=== PATIENT | female | born 1940 | race Caucasian/White ===

== ENCOUNTER 2018-02-21 09:28 | Inpatient (IN) | payer OTHER, MEDICARE ==
[2018-02-21] MEDS ORDERED: SODIUM CHLORIDE 1,000 ML IV STA (09:38)
[2018-02-21] MEDS ORDERED: ONDANSETRON 4 MG/2 ML VIAL IVPUSH ONE (09:38)
[2018-02-21] MEDS ORDERED: morphine CARPU-JECT 2 MG/1 ML DISP.SYRIN IVPUSH ONE ×2 (09:46→14:19)
[2018-02-21] MEDS ORDERED: morphine SULFATE 4 MG/ML VIAL ONE ×2 (09:56→14:25)
[2018-02-21] MEDS ORDERED: ONDANSETRON 4 MG/2 ML VIAL ONE ×2 (09:56→19:27)
--- NOTE | 2018-02-21 10:11 | PDOC ---
History of Present Illness - General History Source: Patient Exam Limitations: No Limitations - History of Present Illness Travel History: No Initial Comments: 02/21/18 10:11 77-year-old female with history of breast cancer, adhesions, small bowel obstruction with a permanent colostomy presents ED were continual abdominal pain associated with nausea and vomiting. Patient also states her stool in the colostomy bag appears darker along with radiation of pain now to the right upper quadrant. 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 Weiss. Patient notify Dr. Isela quijano who is concerned with small bowel obstruction and is recommending an ER evaluation/ workup. Patient denies fever, chills, abdominal distention, chest pain or shortness of breath. Patient does state decreased urination but states has not been able to tolerate anything by mouth. Patient denies history of gallstones or renal colic 02/21/18 10:56 Timing/Duration: reports: getting worse, changing over time Quality: reports: moderate, cramping Abdominal Pain Onset Location: reports: generalized abdomen Pain Radiation: reports: RUQ Activities at Onset: reports: none Aggravating Factors: improves with: None Alleviating Factors: improves with: None <Belem Frias - Last Filed: 02/21/18 13:34> <Greta Oliva - Last Filed: 02/21/18 14:40> - General Chief Complaint: Pain, Acute Stated Complaint: ABD PAIN Time Seen by Provider: 02/21/18 09:30 Past History - Travel Traveled outside of the country in the last 30 days: No - Past Medical History Cancer: Yes (BREAST lt) COPD: No GI Disorders: Yes (COLONIC POLYPS,DIVERTICULOSIS) Disorders: Yes (CYSTOCELE,RECTOCELE) HTN: Yes Hypercholesterolemia: Yes Thyroid Disease: No - Surgical History Abdominal Surgery: Yes (colostomy) - Suicide/Smoking/Psychosocial Hx Smoking History: Never smoked Hx Alcohol Use: Yes (SOCIAL) Drug/Substance Use Hx: No Patient Lives Alone: No Lives with/in: spouse/SO <Belem Frias - Last Filed: 02/21/18 13:34> <Greta Oliva - Last Filed: 02/21/18 14:40> - Past Medical History Allergies/Adverse Reactions: Allergies Allergy/AdvReac Type Severity Reaction Status Date / Time sulfamethoxazole Allergy Severe Rash Verified 02/21/18 09:34 [From Bactrim] trimethoprim [From Bactrim] Allergy Severe Rash Verified 02/21/18 09:34 levofloxacin [From Levaquin] Allergy Hives Verified 02/21/18 09:34 Home Medications: Ambulatory Orders Pantoprazole Sodium [Protonix] 40 mg PO DAILY 10/09/14 Simvastatin [Zocor -] 20 mg PO HS 10/09/14 Losartan Potassium 50 mg PO DAILY 02/14/18 Multivitamin/Iron/Folic Acid [Centrum Adults Tablet] 1 each PO DAILY 02/14/18 Abd/GI Specific PMHX - Complaint Specific PMHX Colitis: Yes Diverticulitis: Yes <Belem Frias - Last Filed: 02/21/18 13:34> Review of Systems - Review of Systems Able to Perform ROS?: Yes Constitutional: No: Symptoms Reported HEENTM: No: Symptoms Reported Respiratory: No: Symptoms reported Cardiac (ROS): No: Symptoms Reported ABD/GI: Yes: Nausea, Poor Appetite, Poor Fluid Intake, Vomiting, Abdominal cramping : No: Symptoms Reported Musculoskeletal: No: Symptoms Reported Integumentary: No: Symptoms Reported Neurological: No: Symptoms reported Endocrine: No: Symptoms Reported Hematologic/Lymphatic: No: Symptoms Reported <Belem Frias - Last Filed: 02/21/18 13:34> *Physical Exam - Vital Signs Last Vital Signs Temp Pulse Resp BP Pulse Ox 98.1 F 74 18 164/105 H 99 02/21/18 09:34 02/21/18 09:34 02/21/18 09:34 02/21/18 09:34 02/21/18 09:34 - Physical Exam General Appearance: Yes: Nourished, Appropriately Dressed. No: Apparent Distress HEENT: negative: Pale Conjunctivae Neck: positive: Supple Respiratory/Chest: positive: Lungs Clear, Normal Breath Sounds. negative: Respiratory Distress, Accessory Muscle Use Cardiovascular: positive: Regular Rhythm, Regular Rate. negative: Murmur Gastrointestinal/Abdominal: positive: Normal Bowel Sounds (upper quadrants), Soft, Distended (around stoma (soft)), Tenderness (right upper quadrant, epigastric) Musculoskeletal: negative: CVA Tenderness Extremity: positive: Normal Capillary Refill. negative: Pedal Edema Integumentary: positive: Normal Color, Warm, Moist Neurologic: positive: Motor Strength 5/5 (ambulatory) <Belem Frias - Last Filed: 02/21/18 13:34> - Vital Signs Last Vital Signs Temp Pulse Resp BP Pulse Ox 98.1 F 74 18 164/105 H 99 02/21/18 09:34 02/21/18 09:34 02/21/18 09:34 02/21/18 09:34 02/21/18 09:34 <Greta Oliva - Last Filed: 02/21/18 14:40> Heart Score/ECG Review - ECG Intrepretation Rhythm: Regular Rhythm (ate 70. LVH. No change from previous 02/14/18) <Belem Frias - Last Filed: 02/21/18 13:34> ED Treatment Course - LABORATORY CBC & Chemistry Diagram: 02/21/18 09:28 02/21/18 09:28 - RADIOLOGY Radiology Studies Ordered: Category Date Time Status ABDOMEN & PELVIS CT WITH CONTR [CT] Stat CT Scan 02/21/18 09:35 Ordered <Belem Frias - Last Filed: 02/21/18 13:34> - LABORATORY CBC & Chemistry Diagram: 02/21/18 09:28 02/21/18 09:28 - ADDITIONAL ORDERS Additional order review: Laboratory Results 02/21/18 02/21/18 11:00 09:28 Sodium 144 Potassium 5.2 H Chloride 108 H Carbon Dioxide 26 Anion Gap 10 BUN 25 H Creatinine 1.2 Creat Clearance w eGFR 43.56 Random Glucose 115 H Calcium 9.6 Magnesium 2.3 Total Bilirubin 0.8 AST 15 ALT 26 Alkaline Phosphatase 79 C-Reactive Protein 0.7 H Total Protein 7.4 Albumin 3.8 Total Amylase 75 Lipase 356 Stool Occult Blood Negative 02/21/18 09:28 RBC 4.73 MCV 90.4 MCHC 33.3 RDW 13.6 MPV 7.5 Neutrophils % 89.8 H D Lymphocytes % 5.2 L D Monocytes % 4.4 Eosinophils % 0.1 D Basophils % 0.5 - Medications Given in the ED: ED Medications Discontinued Medications Generic Name Dose Route Start Last Admin Trade Name Freq PRN Reason Stop Dose Admin Sodium Chloride 1,000 mls @ 1,000 mls/hr 02/21/18 09:38 02/21/18 09:58 Normal Saline - IV 02/21/18 10:37 1,000 mls/hr ASDIR STA Administration Morphine Sulfate 4 mg 02/21/18 09:46 02/21/18 10:05 Morphine Injection - IVPUSH 02/21/18 09:47 4 mg ONCE ONE Administration Ondansetron HCl 4 mg 02/21/18 09:38 02/21/18 10:05 Zofran Injection IVPUSH 02/21/18 09:39 4 mg ONCE ONE Administration <Greta Oliva - Last Filed: 02/21/18 14:40> Medical Decision Making - Medical Decision Making 02/21/18 10:05 CC: Abdominal pain nausea vomiting decreased appetite weakness Exam: Generalized abdominal tenderness worsened in the epigastric and right upper quadrant. Positive soft distention surrounding colostomy. Dark stool noted in colostomy Plan: Labs, urine, CT of the abdomen, antiemetics, analgesics IV fluids, CRP, amylase and lipase. Consult Dr. Weiss once diagnostics are resulted. Surgery consult if needed to Dr. Goldstein. Admit to Dr. Hernandez 02/21/18 11:32 Laboratory Tests 02/21/18 11:00 Stool Occult Blood Negative Laboratory Tests 02/21/18 02/21/18 09:28 09:28 WBC 9.5 Hgb 14.2 Hct 42.8 Plt Count 304 D Neutrophils % 89.8 H D Sodium 144 Potassium 5.2 H Chloride 108 H Carbon Dioxide 26 Anion Gap 10 BUN 25 H Creatinine 1.2 Random Glucose 115 H Magnesium 2.3 C-Reactive Protein 0.7 H Total Protein 7.4 Total Amylase 75 Lipase 356 02/21/18 13:32 CT of the abdomen shows small bowel distention which has increased since previous CT done last week in the left abdomen suggestive of shocks and. There is also again visualization of mesenteric edema within the left abdomen/pelvis. Moderate to small amount of free fluid is again seen within the lower pelvis. Development of a [id number] amount of free fluid is seen within the right paramedian ventral infraumbilical hernia which is as seen on prior exam contains several nondilated small bowel loops. A 1.3 cm splenic low attenuation focus is seen probably representing a cyst. This focus is unchanged since previous exam although not definite present on a more remote CT study noted in 2015. Micro-blog sent to Dr. Gardner. Call placed to surgeon Dr. Goldstein <Belem Frias - Last Filed: 02/21/18 13:34> - Medical Decision Making 1:28pm Call placed to Dr. Reyes, correspondence clerk for patient's surgeon Dr. MK Goldstein, awaiting call back. 2:00pm Second call placed to Dr. Reyes, awaiting call back. 2:25pm Third call placed to Dr. Reyes, case was discussed. <Greta Oliva - Last Filed: 02/21/18 14:40> *DC/Admit/Observation/Transfer - Discharge Dispostion Decision to Admit order: Yes <Belem Frias - Last Filed: 02/21/18 13:34> <Greta Oliva - Last Filed: 02/21/18 14:40> Diagnosis at time of Disposition: SBO (small bowel obstruction)
[2018-02-21 10:18] LABS: BASO % 0.5 % (0-2.0); EOS % 0.1 % (0-4.5); HEMATOCRIT 42.8 % (32.4-45.2); HEMOGLOBIN 14.2 GM/dL (10.7-15.3); LYMPH % 5.2 % (8-40); MCH 30.1 pg (25.7-33.7); MCHC 33.3 g/dl (32.0-36.0); MEAN CELL VOLUME 90.4 fl (80-96); MEAN PLT VOLUME 7.5 fl (7.5-11.1); MONO % 4.4 % (3.8-10.2); NEUT % 89.8 % (42.8-82.8); PLATELET COUNT 304 K/MM3 (134-434); RBC 4.73 M/mm3 (3.60-5.2); RDW 13.6 % (11.6-15.6); WHITE BLOOD COUNT 9.5 K/mm3 (4.0-10.0)
[2018-02-21 10:48] LABS: ALBUMIN 3.8 g/dl (3.4-5.0); ALK PHOS 79 U/L (45-117); AMYLASE 75 U/L (25-115); ANION GAP 10 MMOL/L (8-16); BILIRUBIN,TOTAL 0.8 mg/dL (0.2-1); BLOOD UREA NITROGEN 25 mg/dL (7-18); CALCIUM 9.6 mg/dL (8.5-10.1); CHLORIDE 108 mmol/L (98-107); CO2 26 mmol/L (21-32); CREATININE 1.2 mg/dL (0.55-1.3); GLUCOSE,RANDOM 115 mg/dL (74-106); LIPASE 356 U/L (73-393); MAGNESIUM 2.3 mg/dL (1.8-2.4); POTASSIUM 5.2 mmol/L (3.5-5.1); SGOT/AST 15 U/L (15-37); SGPT/ALT 26 U/L (13-61); SODIUM 144 mmol/L (136-145); TOT PROT 7.4 g/dl (6.4-8.2)
--- NOTE | 2018-02-21 12:47 | EKG ---
Test Reason : Blood Pressure : / mmHG Vent. Rate : 070 BPM Atrial Rate : 070 BPM P-R Int : 172 ms QRS Dur : 100 ms QT Int : 408 ms P-R-T Axes : 032 -46 010 degrees QTc Int : 440 ms NORMAL SINUS RHYTHM LEFT ANTERIOR FASCICULAR BLOCK VOLTAGE CRITERIA FOR LEFT VENTRICULAR HYPERTROPHY ABNORMAL ECG Confirmed by MD ANTONY, JENNIE ([id number]) on 02/21/2018 12:46:53 PM Referred By: Confirmed By:JENNIE HARDY MD
--- NOTE | 2018-02-21 13:46 | HP ---
Admitting History and Physical - Primary Care Physician PCP: Larry Hernandez - Admission Chief Complaint: abdominal pain History of Present Illness: is a 77 year old female pmh significant for abdominal surgeries presents with abdominal pain with accompanying n/v since last night. Pt reports sharp/shooting moderate upper abdominal pain, severe in RUQ, radiating to lower back. Pt reports 4 episodes of bilious vomiting prior to admission. She notes colostomy to be without significant outpt/flatus, darker stool seen in ostomy.Upon speaking with GI , she was advised to come to ED. Of note , pt was discharged from hospital on Tuesday for jejunitis/sbo which was managed conservatively. Received Zosyn for 3 days last week. Otherwise, pt denies any chest pain, sob, diarrhea, weakness, fever/chills, hematemesis or recent changes in medications. History Source: Patient Limitations to Obtaining History: No Limitations - Past Medical History Cardiovascular: Yes: HTN, Hyperlipdemia Gastrointestinal: Yes: Diverticulitis (with sigmoid stricture requiring excision on 10/11/14 followed by Kami Procedure), Diverticulosis, Peptic Ulcer Disease, Other (Colon polyps removed 2002, transverse colostomy following sigmoid stricture repair) Renal/: Yes: Cancer (Left breast ca , DCIS managed with lumpectomy and RT in 2005) Heme/Onc: Yes: Cancer (breast ) - Past Surgical History Past Surgical History: Yes: Breast Biopsy, Cataract Removal, Hysterectomy ( vaginal YIN 1978 ), Tonsillectomy Additional Past Surgical History: Transvaginal cystocele and rectocele repair and subseqquen vaginal repair- Dr Boswell - Smoking History Smoking history: Never smoked - Alcohol/Substance Use Hx Alcohol Use: Yes (SOCIAL) History of Substance Use: reports: None - Social History ADL: Independent 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 @[employer] History of Recent Travel: No Home Medications - Allergies Allergies/Adverse Reactions: Allergies Allergy/AdvReac Type Severity Reaction Status Date / Time sulfamethoxazole Allergy Severe Rash Verified 02/21/18 09:34 [From Bactrim] trimethoprim [From Bactrim] Allergy Severe Rash Verified 02/21/18 09:34 levofloxacin [From Levaquin] Allergy Hives Verified 02/21/18 09:34 - Home Medications Home Medications: Ambulatory Orders Pantoprazole Sodium [Protonix] 40 mg PO DAILY 10/09/14 Simvastatin [Zocor -] 20 mg PO HS 10/09/14 Losartan Potassium 50 mg PO DAILY 02/14/18 Multivitamin/Iron/Folic Acid [Centrum Adults Tablet] 1 each PO DAILY 02/14/18 Family Disease History - Family Disease History Family Disease History: Heart Disease: Mother ([place], diverticulitis surgery), CA: Father (lung cancer), Other: Brother (colon polyps) Review of Systems Findings/Remarks: as per hpi Physical Examination Vital Signs: Vital Signs Temperature 98.1 F 02/21/18 09:34 Pulse Rate 74 02/21/18 09:34 Respiratory Rate 18 02/21/18 09:34 Blood Pressure 164/105 H 02/21/18 09:34 O2 Sat by Pulse Oximetry (%) 99 02/21/18 09:34 Constitutional: Yes: Well Nourished, No Distress, Calm Cardiovascular: Yes: WNL, Regular Rate and Rhythm. No: Murmur, Rub Respiratory: Yes: WNL, Regular, CTA Bilaterally. No: Accessory Muscle Use, Rhonchi, SOB, Tachypnea, Wheezes Gastrointestinal: Yes: Normal Bowel Sounds, Soft, Abdomen, Obese, Hernia, Hypoactive Bowel Sounds, Vomiting, Other (colostomy in place). No: Distention, Tenderness, Tenderness, Rebound Renal/: Yes: WNL Musculoskeletal: Yes: WNL Edema: No Neurological: Yes: WNL, Alert, Oriented Psychiatric: Yes: WNL, Alert, Oriented Labs: CBC, BMP 02/21/18 09:28 02/21/18 09:28 Imaging - Results Cat Scan: Report Reviewed ( In comparison to a CT exam of 02/14/2018 interval increased small bowel distention is seen within the left abdomen/pelvis suggestive of obstruction. Mesenteric edema is again seen which may be on the basis of vascular compromise. Increased free intraperitoneal fluid is noted. As on the prior study a left lower quadrant colostomy is seen with a parastomal hernia containing nondilated large and small bowel loops. There is also visualization of a right paramedian infraumbilical hernia containing nondilated small bowel.) EKG: Report Reviewed (NSR) Problem List - Problems (1) SBO (small bowel obstruction) Assessment/Plan: presents w/ abd pain, n/v abd soft, non tender, +bs colostomy without flatus stool occult blood negative CT consistent with SBO suspect 2/2 abd adhesions NPO IVF Strict I&O's Antiemetics/analgesics prn GI/surgery consulted Code(s): K56.609 - UNSP INTESTNL OBST, UNSP TO PARTIAL VERSUS COMPLETE OBST (2) Nausea & vomiting Assessment/Plan: as above Code(s): R11.2 - NAUSEA WITH VOMITING, UNSPECIFIED Qualifiers: Vomiting type: bilious vomiting Qualified Code(s): R11.14 - Bilious vomiting (3) Abdominal pain Assessment/Plan: as above Code(s): R10.9 - UNSPECIFIED ABDOMINAL PAIN Qualifiers: Abdominal location: generalized Qualified Code(s): R10.84 - Generalized abdominal pain (4) CHERYL (acute kidney injury) Assessment/Plan: suspect pre renal IVF monitor Code(s): N17.9 - ACUTE KIDNEY FAILURE, UNSPECIFIED (5) Hyperkalemia Assessment/Plan: suspect 2/2 dehydration monitor Code(s): E87.5 - HYPERKALEMIA (6) S/P colostomy Assessment/Plan: transverse colostomy in place monitor function Code(s): Z93.3 - COLOSTOMY STATUS (7) HLD (hyperlipidemia) Assessment/Plan: stable hold statin for now Code(s): E78.5 - HYPERLIPIDEMIA, UNSPECIFIED Qualifiers: Hyperlipidemia type: pure hypercholesterolemia Qualified Code(s): E78.00 - Pure hypercholesterolemia, unspecified; E78.0 - Pure hypercholesterolemia (8) HTN (hypertension) Assessment/Plan: controlled continue losartan Code(s): I10 - ESSENTIAL (PRIMARY) HYPERTENSION Qualifiers: Hypertension type: essential hypertension Qualified Code(s): I10 - Essential (primary) hypertension
[2018-02-21] MEDS ORDERED: LOSARTAN POTASSIUM 50 MG TABLET (FP) PO SCH (14:15)
[2018-02-21] MEDS ORDERED: PANTOPRAZOLE SODIUM 40 MG/100 ML BAG IVPB ONE (14:26)
[2018-02-21] MEDS ORDERED: HEPARIN NA (PORCINE) 5,000 UNITS/ML 1ML VIAL ONE (14:26)
[2018-02-21] MEDS: PANTOPRAZOLE SODIUM 40 MG VIAL IVPUSH SCH (14:46)
[2018-02-21] MEDS: HEPARIN NA (PORCINE) 5,000 UNITS/ML 1ML VIAL SQ SCH ×2 (14:46→22:03)
[2018-02-21 15:11] LABS: URINE APPEARANCE CLEAR; URINE BILIRUBIN NEGATIVE (<2.0 mg/dL); URINE COLOR LTYELLOW; URINE GLUCOSE (UA) NEGATIVE (NEGATIVE); URINE KETONE 1+ (NEGATIVE); URINE LEUK ESTERASE TRACE (NEGATIVE); URINE NITRITE NEGATIVE (NEGATIVE); URINE PROTEIN NEGATIVE (NEGATIVE); URINE UROBILINOGEN NEGATIVE mg/dL (0.2-1.0)
[2018-02-21 15:39] LABS: EPI CELLS FEW /HPF (FEW); URINE MUCUS RARE
[2018-02-21] MEDS: SODIUM CHLORIDE 1,000 ML IV SCH ×2 (15:44→22:15)
[2018-02-21] MEDS: LOSARTAN POTASSIUM 50 MG TABLET (FP) PO SCH (16:26)
[2018-02-21] MEDS ORDERED: MORPHINE SULFATE 2 MG/ML VIAL ONE (19:23)
[2018-02-21] MEDS: ONDANSETRON 4 MG/2 ML VIAL IVPUSH PRN (19:34)
[2018-02-21] MEDS: MORPHINE SULFATE 2 MG/ML VIAL IVPUSH PRN (19:34)
--- NOTE | 2018-02-21 22:57 | CON.GI ---
Consult Consult Specialty:: Gastroenterology Referred by:: Dr Hernandez Reason for Consultation:: Abd pain and vomiting - History of Present Illness Chief Complaint: Abdominal pain and vomtinig History of Present Illness: 77F was discharged about 3 days ago after SBO resolved. Ths same pain and vomiiting recurred this AM prompting her to call me when I referred her to the ER. CT scan reveals a recurrent SBO. Please see my recent consultation for detailed history - History Source History Provided By: Patient Limitations to Obtaining History: No Limitations - Past Medical History Cardio/Vascular: Yes: HTN, Hyperlipdemia Gastrointestinal: Yes: Diverticulitis (with sigmoid stricture requiring excision on 10/11/14 followed by Kami Procedure), Diverticulosis, Peptic Ulcer Disease, Other (Colon polyps removed 2002, transverse colostomy following sigmoid stricture repair, recurring SBO) Renal/: Yes: Cancer (Left breast ca , DCIS managed with lumpectomy and RT in 2005) - Past Surgical History Past Surgical History: Yes: Breast Biopsy, Cataract Removal, Hysterectomy ( vaginal YIN 1978 ), Tonsillectomy - Alcohol/Substance Use Hx Alcohol Use: Yes (SOCIAL) History of Substance Use: reports: None - Smoking History Smoking history: Never smoked - Social History Usual Living Arrangement: With Spouse ADL: Independent 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 @[employer] History of Recent Travel: No Home Medications - Allergies Allergies/Adverse Reactions: Allergies Allergy/AdvReac Type Severity Reaction Status Date / Time sulfamethoxazole Allergy Severe Rash Verified 02/21/18 09:34 [From Bactrim] trimethoprim [From Bactrim] Allergy Severe Rash Verified 02/21/18 09:34 levofloxacin [From Levaquin] Allergy Hives Verified 02/21/18 09:34 - Home Medications Home Medications: Ambulatory Orders Pantoprazole Sodium [Protonix] 40 mg PO DAILY 10/09/14 Simvastatin [Zocor -] 20 mg PO HS 10/09/14 Losartan Potassium 50 mg PO DAILY 02/14/18 Multivitamin/Iron/Folic Acid [Centrum Adults Tablet] 1 each PO DAILY 02/14/18 Family Disease History - Family Disease History Family Disease History: Heart Disease: Mother ([place], diverticulitis surgery), CA: Father (lung cancer), Other: Brother (colon polyps) Review of Systems - Review of Systems Constitutional: reports: Loss of Appetite Cardiovascular: reports: No Symptoms Respiratory: reports: No Symptoms Gastrointestinal: reports: Abdominal Pain, Vomiting Physical Exam-GI Vital Signs: Vital Signs Temperature 99.4 F 02/21/18 22:19 Pulse Rate 86 02/21/18 22:19 Respiratory Rate 18 02/21/18 22:19 Blood Pressure 142/76 02/21/18 22:19 O2 Sat by Pulse Oximetry (%) 98 02/21/18 21:14 CBC,CMP WBC 9.5 K/mm3 (4.0-10.0) 02/21/18 09:28 RBC 4.73 M/mm3 (3.60-5.2) 02/21/18 09:28 Hgb 14.2 GM/dL (10.7-15.3) 02/21/18 09: Hct 42.8 % (32.4-45.2) 02/21/18 09:28 MCV 90.4 fl (80-96) 02/21/18 09: MCH 30.1 pg (25.7-33.7) 02/21/18 09: MCHC 33.3 g/dl (32.0-36.0) 02/21/18 09: RDW 13.6 % (11.6-15.6) 02/21/18 09: Plt Count 304 K/MM3 (134-434) D 02/21/18 09:28 MPV 7.5 fl (7.5-11.1) 02/21/18 09:28 Absolute Neuts (auto) 8.6 K/mm3 (1.5-8.0) H 02/21/18 09: Neutrophils % 89.8 % (42.8-82.8) H D 02/21/18 09:28 Lymphocytes % 5.2 % (8-40) L D 02/21/18 09:28 Monocytes % 4.4 % (3.8-10.2) 02/21/18 09:28 Eosinophils % 0.1 % (0-4.5) D 02/21/18 09:28 Basophils % 0.5 % (0-2.0) 02/21/18 09:28 Nucleated RBC % 0 % (0-0) 02/21/18 09:28 Sodium 144 mmol/L (136-145) 02/21/18 09:28 Potassium 5.2 mmol/L (3.5-5.1) H 02/21/18 09:28 Chloride 108 mmol/L (98-107) H 02/21/18 09:28 Carbon Dioxide 26 mmol/L (21-32) 02/21/18:28 Anion Gap 10 MMOL/L (8-16) 02/21/18 09:28 BUN 25 mg/dL (7-18) H 02/21/18 09:28 Creatinine 1.2 mg/dL (0.55-1.3) 02/21/18 09:28 Creat Clearance w eGFR 43.56 (>60) 02/21/18: Random Glucose 115 mg/dL (74-106) H 02/21/18: Calcium 9.6 mg/dL (8.5-10.1) 02/21/18: Magnesium 2.3 mg/dL (1.8-2.4) 02/21/18 09: Total Bilirubin 0.8 mg/dL (0.2-1) 02/21/18: AST 15 U/L (15-37) 02/21/18 09:28 ALT 26 U/L (13-61) 02/21/18 09: Alkaline Phosphatase 79 U/L (45-117) 02/21/18 09:28 C-Reactive Protein 0.7 MG/DL (0.00-0.3) H 02/21/18 09:28 Total Protein 7.4 g/dl (6.4-8.2) 02/21/18: Albumin 3.8 g/dl (3.4-5.0) 02/21/18 09:28 Total Amylase 75 U/L (25-115) 02/21/18 09:28 Lipase 356 U/L (73-393) 02/21/18 09:28 Current Medications Generic Name Dose Route Start Last Admin Trade Name Freq PRN Reason Stop Dose Admin Heparin Sodium (Porcine) 5,000 unit 02/21/18 14:00 02/21/18 22:03 Heparin - SQ 5,000 unit TID JOSELUIS Administration Sodium Chloride 1,000 mls @ 100 mls/hr 02/21/18 14:45 02/21/18 22:15 Normal Saline - IV 100 mls/hr ASDIR JOSELUIS Administration Losartan Potassium 50 mg 02/21/18 14:15 02/21/18 16:26 Cozaar - PO 50 mg DAILY JOSELUIS Administration Morphine Sulfate 2 mg 02/21/18 16:48 02/21/18 19:34 Morphine Sulfate IVPUSH 2 mg Q4H PRN Administration PAIN LEVEL 6-10 Ondansetron HCl 4 mg 02/21/18 16:49 02/21/18 19:34 Zofran Injection IVPUSH 4 mg Q6H PRN Administration NAUSEA AND/OR VOMITING Pantoprazole Sodium 40 mg 02/21/18 14:15 02/21/18 14:46 Protonix Iv IVPUSH 40 mg DAILY JOSELUIS Administration Constitutional: Yes: Anxious Eyes: Yes: Conjunctiva Clear HENT: Yes: Normocephalic Neck: Yes: Trachea Midline Cardiovascular: Yes: Regular Rate and Rhythm Respiratory: Yes: CTA Bilaterally Gastrointestinal Inspection: Yes: Scars (healed laparoscopic and Pfannensteil incisions with suprapubic nontender hernia), Other (functioning LUQ colostomy with hernia,) ...Auscultate: Yes: Hyperactive Bowel Sounds ...Palpate: Yes: Tenderness (mild LLQ tenderness, no peritoneal signs) Labs: CBC, BMP 02/21/18 09:28 02/21/18 09:28 Imaging - Results Cat Scan: Image Reviewed (recurrent SBO,) Problem List - Problems (1) SBO (small bowel obstruction) Assessment/Plan: Recurrent SBO most likely due to adhesions as there do not appears to be intestinal loops dilated within her hernias. Agree with need to be NPO and for IV fluids until evaluated by surgery, If vomiting recurs will need NG suctioning ( failed insertion in ER). Code(s): K56.609 - UNSP INTESTNL OBST, UNSP TO PARTIAL VERSUS COMPLETE OBST (2) Abdominal pain Code(s): R10.9 - UNSPECIFIED ABDOMINAL PAIN Qualifiers: Abdominal location: generalized Qualified Code(s): R10.84 - Generalized abdominal pain (3) Colon polyps Code(s): K63.5 - POLYP OF COLON (4) Complication of ostomy Code(s): [id number] - (5) History of surgical removal of intestinal structure Code(s): Z98.890 - OTHER SPECIFIED POSTPROCEDURAL STATES; Z90.49 - ACQUIRED ABSENCE OF OTHER SPECIFIED PARTS OF DIGESTIVE TRACT (6) Nausea & vomiting Code(s): R11.2 - NAUSEA WITH VOMITING, UNSPECIFIED Qualifiers: Vomiting type: bilious vomiting Qualified Code(s): R11.14 - Bilious vomiting (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
--- NOTE | 2018-02-21 23:13 | PN ---
Progress Note (short form) - Note Progress Note: GI NOte: The NG tube was inserted as Nicole did vomit again. Bilious fluid returned. Suctioning ordered Problem List - Problems (1) SBO (small bowel obstruction) Code(s): K56.609 - UNSP INTESTNL OBST, UNSP TO PARTIAL VERSUS COMPLETE OBST (2) Abdominal pain Code(s): R10.9 - UNSPECIFIED ABDOMINAL PAIN Qualifiers: Abdominal location: generalized Qualified Code(s): R10.84 - Generalized abdominal pain (3) Colon polyps Code(s): K63.5 - POLYP OF COLON (4) Complication of ostomy Code(s): [id number] - (5) History of surgical removal of intestinal structure Code(s): Z98.890 - OTHER SPECIFIED POSTPROCEDURAL STATES; Z90.49 - ACQUIRED ABSENCE OF OTHER SPECIFIED PARTS OF DIGESTIVE TRACT (6) Nausea & vomiting Code(s): R11.2 - NAUSEA WITH VOMITING, UNSPECIFIED Qualifiers: Vomiting type: bilious vomiting Qualified Code(s): R11.14 - Bilious vomiting (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
[2018-02-22] MEDS ORDERED: ACETAMINOPHEN 1000 MG/100 ML VIAL (NON FORMULARY) IVPB ONE (03:06)
[2018-02-22] MEDS: HEPARIN NA (PORCINE) 5,000 UNITS/ML 1ML VIAL SQ SCH ×3 (05:46→22:01)
[2018-02-22 06:38] LABS: BASO % 0.4 % (0-2.0); EOS % 0.8 % (0-4.5); HEMATOCRIT 38.9 % (32.4-45.2); HEMOGLOBIN 12.7 GM/dL (10.7-15.3); LYMPH % 10.7 % (8-40); MCH 29.8 pg (25.7-33.7); MCHC 32.7 g/dl (32.0-36.0); MEAN CELL VOLUME 91.3 fl (80-96); MEAN PLT VOLUME 7.2 fl (7.5-11.1); MONO % 6.7 % (3.8-10.2); NEUT % 81.4 % (42.8-82.8); PLATELET COUNT 229 K/MM3 (134-434); RBC 4.26 M/mm3 (3.60-5.2); RDW 13.4 % (11.6-15.6); WHITE BLOOD COUNT 5.8 K/mm3 (4.0-10.0)
[2018-02-22 07:30] LABS: ALBUMIN 3.1 g/dl (3.4-5.0); ALK PHOS 61 U/L (45-117); ANION GAP 7 MMOL/L (8-16); BILIRUBIN,TOTAL 0.7 mg/dL (0.2-1); BLOOD UREA NITROGEN 17 mg/dL (7-18); CALCIUM 8.1 mg/dL (8.5-10.1); CHLORIDE 110 mmol/L (98-107); CO2 27 mmol/L (21-32); CREATININE 0.9 mg/dL (0.55-1.3); GLUCOSE,RANDOM 102 mg/dL (74-106); MAGNESIUM 2.1 mg/dL (1.8-2.4); POTASSIUM 4.2 mmol/L (3.5-5.1); SGOT/AST 10 U/L (15-37); SGPT/ALT 19 U/L (13-61); SODIUM 144 mmol/L (136-145)
[2018-02-22] MEDS: SODIUM CHLORIDE 1,000 ML IV SCH (08:38)
--- NOTE | 2018-02-22 10:24 | PN ---
Progress Note (short form) - Note Progress Note: surgery pt seen and examined. 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 pt had chosen to live with her colostomy and developed a large para-stomal hernia. Pt recently admitted and discharged for adhesive sbo and returns with similar symptoms after eating spinach. Ct consistent with adhesive sbo not involving the parastomal hernia. Pt is currently pain free with ngt output now dropping off after initial 1000 output. abd is soft, nt. parastomal hernia is reducible. scant stool without gas in colostomy bag. plan- psbo, parastomal hernia, obesity- would again attempt conservative management and only operate if fails. Pt is non toxic without clinical evidence of bowel compromise. cont ngt. will give trial of sesame seed oil or olive oil therapy pending kitchen availability. (Study in [place] and [place] with about 60 patients each showed decrease need for surgery ([place]) and decreased time to resolution (both) with 5 oz of oil via ngt. will repeat kub to follow migration of contrast. will follow.
[2018-02-22] MEDS: LOSARTAN POTASSIUM 50 MG TABLET (FP) PO SCH (10:46)
[2018-02-22] MEDS: PANTOPRAZOLE SODIUM 40 MG VIAL IVPUSH SCH (10:46)
--- NOTE | 2018-02-22 11:59 | PN ---
Progress Note, Physician Chief Complaint: Pt sitting in chair in no acute distress. Feeling better, abd pain improved. Denies any chest pain, sob, n/v/d - Current Medication List Current Medications: Active Medications Heparin Sodium (Porcine) (Heparin -) 5,000 unit SQ TID [facility] Last Admin: 02/22/18 05:46 Dose: 5,000 unit Sodium Chloride (Normal Saline -) 1,000 mls @ 100 mls/hr IV ASDIR [facility] Last Admin: 02/22/18 08:38 Dose: 100 mls/hr Losartan Potassium (Cozaar -) 50 mg PO DAILY [facility] Last Admin: 02/22/18 10:46 Dose: 50 mg Morphine Sulfate (Morphine Sulfate) 2 mg IVPUSH Q4H PRN PRN Reason: PAIN LEVEL 6-10 Last Admin: 02/21/18 19:34 Dose: 2 mg Ondansetron HCl (Zofran Injection) 4 mg IVPUSH Q6H PRN PRN Reason: NAUSEA AND/OR VOMITING Last Admin: 02/21/18 19:34 Dose: 4 mg Pantoprazole Sodium (Protonix Iv) 40 mg IVPUSH DAILY [facility] Last Admin: 02/22/18 10:46 Dose: 40 mg - Objective Vital Signs: Vital Signs Temperature 98.8 F 02/22/18 06:37 Pulse Rate 90 02/22/18 06:37 Respiratory Rate 20 02/22/18 06:37 Blood Pressure 142/82 02/22/18 06:37 O2 Sat by Pulse Oximetry (%) 98 02/21/18 21:14 Constitutional: Yes: Well Nourished, No Distress, Calm Cardiovascular: Yes: WNL, Regular Rate and Rhythm. No: Murmur, Rub Respiratory: Yes: WNL, Regular, CTA Bilaterally. No: Accessory Muscle Use, SOB , Tachypnea, Wheezes Gastrointestinal: Yes: Normal Bowel Sounds, Soft, Abdomen, Obese, Hypoactive Bowel Sounds, Other (colostomy in place). No: Distention, Tenderness Genitourinary: Yes: WNL Musculoskeletal: Yes: WNL Extremities: Yes: WNL Edema: No Neurological: Yes: WNL, Alert, Oriented Psychiatric: Yes: WNL, Alert, Oriented Labs: CBC, BMP 02/22/18 05:30 02/22/18 05:30 Assessment/Plan (1) SBO (small bowel obstruction) Assessment/Plan: kub this am- sbo similar to CT suspect 2/2 abd adhesions NGT to LCWS NPO IVF Strict I&O's Antiemetics/analgesics prn conservative management per surgery- trial of sesame/olive oil GI/surgery consult appreciated Code(s): K56.609 - UNSP INTESTNL OBST, UNSP TO PARTIAL VERSUS COMPLETE OBST (2) Nausea & vomiting Assessment/Plan: as above Code(s): R11.2 - NAUSEA WITH VOMITING, UNSPECIFIED Qualifiers: Vomiting type: bilious vomiting Qualified Code(s): R11.14 - Bilious vomiting (3) Abdominal pain Assessment/Plan: as above Code(s): R10.9 - UNSPECIFIED ABDOMINAL PAIN Qualifiers: Abdominal location: generalized Qualified Code(s): R10.84 - Generalized abdominal pain (4) CHERYL (acute kidney injury) Assessment/Plan: improved s/p ivf Code(s): N17.9 - ACUTE KIDNEY FAILURE, UNSPECIFIED (5) Hyperkalemia Assessment/Plan: resolved Code(s): E87.5 - HYPERKALEMIA (6) S/P colostomy Assessment/Plan: transverse colostomy in place Code(s): Z93.3 - COLOSTOMY STATUS (7) HLD (hyperlipidemia) Assessment/Plan: stable hold statin for now Code(s): E78.5 - HYPERLIPIDEMIA, UNSPECIFIED Qualifiers: Hyperlipidemia type: pure hypercholesterolemia Qualified Code(s): E78.00 - Pure hypercholesterolemia, unspecified; E78.0 - Pure hypercholesterolemia (8) HTN (hypertension) Assessment/Plan: controlled continue losartan Code(s): I10 - ESSENTIAL (PRIMARY) HYPERTENSION Qualifiers: Hypertension type: essential hypertension Qualified Code(s): I10 - Essential (primary) hypertension Dispo: home when surgery cleared
--- NOTE | 2018-02-22 12:13 | PN ---
GI Progress Note Subjective: G NOte: NG has drained 1300cc. Abdominal pain and vomiting resolved. Colostomy is functioning. Surgical consultation appreciated. - Objective Vital Signs: Vital Signs Temperature 98.8 F 02/22/18 06:37 Pulse Rate 90 02/22/18 06:37 Respiratory Rate 20 02/22/18 06:37 Blood Pressure 142/82 02/22/18 06:37 O2 Sat by Pulse Oximetry (%) 98 02/21/18 21:14 Laboratory Tests 02/22/18 02/22/18 05:30 05:30 WBC 5.8 Potassium 4.2 BUN 17 Creatinine 0.9 Gastrointestinal Inspection: Yes: Distention ...Auscultate: Yes: Normoactive Bowel Sounds ...Palpate: Yes: Soft, Other (nontender) Labs: CBC, BMP 02/22/18 05:30 02/22/18 05:30 Problem List - Problems (1) SBO (small bowel obstruction) Assessment/Plan: Recurrent SBO likely due to adhesions. Will defer management to the surgical team. Please recall us as needed. Code(s): K56.609 - UNSP INTESTNL OBST, UNSP TO PARTIAL VERSUS COMPLETE OBST (2) Abdominal pain Code(s): R10.9 - UNSPECIFIED ABDOMINAL PAIN Qualifiers: Abdominal location: generalized Qualified Code(s): R10.84 - Generalized abdominal pain (3) Colon polyps Code(s): K63.5 - POLYP OF COLON (4) Complication of ostomy Code(s): [id number] - (5) History of surgical removal of intestinal structure Code(s): Z98.890 - OTHER SPECIFIED POSTPROCEDURAL STATES; Z90.49 - ACQUIRED ABSENCE OF OTHER SPECIFIED PARTS OF DIGESTIVE TRACT (6) Nausea & vomiting Code(s): R11.2 - NAUSEA WITH VOMITING, UNSPECIFIED Qualifiers: Vomiting type: bilious vomiting Qualified Code(s): R11.14 - Bilious vomiting (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
[2018-02-22] MEDS: ONDANSETRON 4 MG/2 ML VIAL IVPUSH PRN (22:18)
[2018-02-23] MEDS: HEPARIN NA (PORCINE) 5,000 UNITS/ML 1ML VIAL SQ SCH ×3 (06:54→21:09)
[2018-02-23 07:15] LABS: BASO % 0.6 % (0-2.0); EOS % 0.2 % (0-4.5); HEMATOCRIT 43.6 % (32.4-45.2); HEMOGLOBIN 14.4 GM/dL (10.7-15.3); LYMPH % 9.4 % (8-40); MCH 29.7 pg (25.7-33.7); MCHC 32.9 g/dl (32.0-36.0); MEAN CELL VOLUME 90.2 fl (80-96); MEAN PLT VOLUME 7.7 fl (7.5-11.1); MONO % 6.2 % (3.8-10.2); NEUT % 83.6 % (42.8-82.8); PLATELET COUNT 320 K/MM3 (134-434); RBC 4.83 M/mm3 (3.60-5.2); RDW 13.4 % (11.6-15.6); WHITE BLOOD COUNT 10.1 K/mm3 (4.0-10.0)
[2018-02-23 07:32] LABS: ANION GAP 9 MMOL/L (8-16); BLOOD UREA NITROGEN 19 mg/dL (7-18); CALCIUM 8.6 mg/dL (8.5-10.1); CHLORIDE 110 mmol/L (98-107); CO2 26 mmol/L (21-32); CREATININE 0.9 mg/dL (0.55-1.3); GLUCOSE,RANDOM 95 mg/dL (74-106); POTASSIUM 3.9 mmol/L (3.5-5.1); SODIUM 145 mmol/L (136-145)
[2018-02-23] MEDS: SODIUM CHLORIDE 1,000 ML IV SCH (08:53)
[2018-02-23] MEDS: LOSARTAN POTASSIUM 50 MG TABLET (FP) PO SCH (10:13)
[2018-02-23] MEDS: PANTOPRAZOLE SODIUM 40 MG VIAL IVPUSH SCH (10:13)
--- NOTE | 2018-02-23 11:47 | PN ---
Progress Note, Physician Chief Complaint: Pt sitting in chair in no acute distress. Feeling better. Denies any chest pain , sob, n/v/d - Current Medication List Current Medications: Active Medications Heparin Sodium (Porcine) (Heparin -) 5,000 unit SQ TID [facility] Last Admin: 02/23/18 06:54 Dose: 5,000 unit Sodium Chloride (Normal Saline -) 1,000 mls @ 100 mls/hr IV ASDIR [facility] Last Admin: 02/23/18 08:53 Dose: 100 mls/hr Losartan Potassium (Cozaar -) 50 mg PO DAILY [facility] Last Admin: 02/23/18 10:13 Dose: 50 mg Morphine Sulfate (Morphine Sulfate) 2 mg IVPUSH Q4H PRN PRN Reason: PAIN LEVEL 6-10 Last Admin: 02/21/18 19:34 Dose: 2 mg Ondansetron HCl (Zofran Injection) 4 mg IVPUSH Q6H PRN PRN Reason: NAUSEA AND/OR VOMITING Last Admin: 02/22/18 22:18 Dose: 4 mg Pantoprazole Sodium (Protonix Iv) 40 mg IVPUSH DAILY [facility] Last Admin: 02/23/18 10:13 Dose: 40 mg - Objective Vital Signs: Vital Signs Temperature 99.4 F 02/23/18 10:06 Pulse Rate 88 02/23/18 10:06 Respiratory Rate 20 02/23/18 10:06 Blood Pressure 139/80 02/23/18 10:06 O2 Sat by Pulse Oximetry (%) 98 02/21/18 21:14 Constitutional: Yes: Well Nourished, No Distress, Calm Cardiovascular: Yes: WNL, Regular Rate and Rhythm Respiratory: Yes: WNL, Regular, CTA Bilaterally. No: Accessory Muscle Use, Cough, SOB, Tachypnea Gastrointestinal: Yes: Normal Bowel Sounds, Soft, Abdomen, Obese, Other (ngt to ws). No: Distention, Hematemesis, Tenderness Genitourinary: Yes: WNL Musculoskeletal: Yes: WNL Extremities: Yes: WNL Neurological: Yes: WNL, Alert, Oriented Psychiatric: Yes: WNL, Alert, Oriented Labs: CBC, BMP 02/23/18 06:00 02/23/18 06:00 Assessment/Plan (1) SBO (small bowel obstruction) Assessment/Plan: suspect 2/2 abd adhesions NGT to LCWS- still w/ significant outpt improved nausea, abd pain NPO IVF increased Strict I&O's Antiemetics/analgesics prn conservative management per surgery- trial of sesame/olive oil GI/surgery consult appreciated Code(s): K56.609 - UNSP INTESTNL OBST, UNSP TO PARTIAL VERSUS COMPLETE OBST (2) Nausea & vomiting Assessment/Plan: as above Code(s): R11.2 - NAUSEA WITH VOMITING, UNSPECIFIED Qualifiers: Vomiting type: bilious vomiting Qualified Code(s): R11.14 - Bilious vomiting (3) Abdominal pain Assessment/Plan: as above Code(s): R10.9 - UNSPECIFIED ABDOMINAL PAIN Qualifiers: Abdominal location: generalized Qualified Code(s): R10.84 - Generalized abdominal pain (4) CHERYL (acute kidney injury) improved s/p ivf Code(s): N17.9 - ACUTE KIDNEY FAILURE, UNSPECIFIED (5) Leukocytosis Assessment/Plan: borderline, monitor closely Code(s): D72.829 - ELEVATED WHITE BLOOD CELL COUNT, UNSPECIFIED (6) S/P colostomy Assessment/Plan: transverse colostomy in place Code(s): Z93.3 - COLOSTOMY STATUS (7) HLD (hyperlipidemia) Assessment/Plan: stable hold statin for now Code(s): E78.5 - HYPERLIPIDEMIA, UNSPECIFIED Qualifiers: Hyperlipidemia type: pure hypercholesterolemia Qualified Code(s): E78.00 - Pure hypercholesterolemia, unspecified; E78.0 - Pure hypercholesterolemia (8) HTN (hypertension) Assessment/Plan: controlled continue losartan Code(s): I10 - ESSENTIAL (PRIMARY) HYPERTENSION Qualifiers: Hypertension type: essential hypertension Qualified Code(s): I10 - Essential (primary) hypertension Dispo: home when surgery cleared
[2018-02-23] MEDS ORDERED: DEXTROSE 5%-0.45% SALINE 1,000 ML IV SCH (12:00)
[2018-02-23] MEDS: DEXTROSE 5%-0.45% SALINE 1,000 ML IV SCH ×2 (12:14→21:10)
[2018-02-23] MEDS: MORPHINE SULFATE 2 MG/ML VIAL IVPUSH PRN (18:36)
[2018-02-24] MEDS: HEPARIN NA (PORCINE) 5,000 UNITS/ML 1ML VIAL SQ SCH ×3 (05:30→22:08)
[2018-02-24] MEDS: DEXTROSE 5%-0.45% SALINE 1,000 ML IV SCH ×4 (05:30→22:09)
--- NOTE | 2018-02-24 07:36 | PN ---
Progress Note (short form) - Note Progress Note: surgery Pt seen and examined yesterday at 2:30 pm. felt well. no significance flatus. kub- still psbo ngt 1000 down from 1999 abd- soft, nt, parastomal hernia reducible Plan- cont ngt, npo.
[2018-02-24 08:21] LABS: BASO % 0.4 % (0-2.0); EOS % 2.3 % (0-4.5); HEMATOCRIT 38.6 % (32.4-45.2); HEMOGLOBIN 12.7 GM/dL (10.7-15.3); LYMPH % 11.9 % (8-40); MCH 29.8 pg (25.7-33.7); MCHC 32.9 g/dl (32.0-36.0); MEAN CELL VOLUME 90.4 fl (80-96); MEAN PLT VOLUME 7.7 fl (7.5-11.1); MONO % 8.1 % (3.8-10.2); NEUT % 77.3 % (42.8-82.8); PLATELET COUNT 227 K/MM3 (134-434); RBC 4.27 M/mm3 (3.60-5.2); RDW 13.2 % (11.6-15.6)
[2018-02-24 08:41] LABS: ANION GAP 8 MMOL/L (8-16); BLOOD UREA NITROGEN 17 mg/dL (7-18); CALCIUM 7.9 mg/dL (8.5-10.1); CHLORIDE 111 mmol/L (98-107); CO2 27 mmol/L (21-32); CREATININE 0.7 mg/dL (0.55-1.3); GLUCOSE,RANDOM 134 mg/dL (74-106); MAGNESIUM 2.2 mg/dL (1.8-2.4); POTASSIUM 4.3 mmol/L (3.5-5.1); SODIUM 146 mmol/L (136-145)
[2018-02-24] MEDS: LOSARTAN POTASSIUM 50 MG TABLET (FP) PO SCH (10:02)
[2018-02-24] MEDS: PANTOPRAZOLE SODIUM 40 MG VIAL IVPUSH SCH (10:03)
[2018-02-24] MEDS ORDERED: LACTATED RINGERS SOLUTION 1000 ML INFUS.BAG IV ONE (12:04)
--- NOTE | 2018-02-24 12:04 | PN ---
Progress Note, Physician Chief Complaint: Pt sitting in chair in no acute distress. urine color elizabeth per pt. Denies any chest pain, sob, n/v/d - Current Medication List Current Medications: Active Medications Heparin Sodium (Porcine) (Heparin -) 5,000 unit SQ TID [facility] Last Admin: 02/24/18 05:30 Dose: 5,000 unit Dextrose/Sodium Chloride (D5-1/2ns -) 1,000 mls @ 125 mls/hr IV ASDIR [facility] Last Admin: 02/24/18 05:30 Dose: 125 mls/hr Lactated Ringer's (Lactated Ringers Solution) 500 ml IV ONCE ONE Stop: 02/24/18 12:05 Losartan Potassium (Cozaar -) 50 mg PO DAILY [facility] Last Admin: 02/24/18 10:02 Dose: 50 mg Morphine Sulfate (Morphine Sulfate) 2 mg IVPUSH Q4H PRN PRN Reason: PAIN LEVEL 6-10 Last Admin: 02/23/18 18:36 Dose: 2 mg Ondansetron HCl (Zofran Injection) 4 mg IVPUSH Q6H PRN PRN Reason: NAUSEA AND/OR VOMITING Last Admin: 02/22/18 22:18 Dose: 4 mg Pantoprazole Sodium (Protonix Iv) 40 mg IVPUSH DAILY [facility] Last Admin: 02/24/18 10:03 Dose: 40 mg - Objective Vital Signs: Vital Signs Temperature 98.8 F 02/24/18 09:55 Pulse Rate 72 02/24/18 09:55 Respiratory Rate 20 02/24/18 09:55 Blood Pressure 159/85 02/24/18 09:55 O2 Sat by Pulse Oximetry (%) 99 02/23/18 21:00 Constitutional: Yes: Well Nourished, No Distress, Calm Cardiovascular: Yes: WNL, Regular Rate and Rhythm. No: Murmur Respiratory: Yes: WNL, Regular, CTA Bilaterally. No: Accessory Muscle Use, Rhonchi, SOB, Tachypnea, Wheezes Gastrointestinal: Yes: Soft, Abdomen, Obese, Hernia, Hypoactive Bowel Sounds, Other (ngt to lcws). No: Distention, Tenderness, Vomiting Genitourinary: Yes: WNL Edema: No Neurological: Yes: WNL, Alert, Oriented Psychiatric: Yes: WNL, Alert, Oriented Labs: CBC, BMP 02/24/18 06:50 10/26/18 06:50 Assessment/Plan (1) SBO (small bowel obstruction) Assessment/Plan: suspect 2/2 abd adhesions NGT to LCWS- still w/ significant outpt improved nausea, abd pain NPO IVF, average UOP 25ml/hr, 500ml of bolus ordered Strict I&O's Antiemetics/analgesics prn conservative management per surgery- trial of sesame/olive oil GI/surgery consult appreciated Code(s): K56.609 - UNSP INTESTNL OBST, UNSP TO PARTIAL VERSUS COMPLETE OBST (2) Nausea & vomiting Assessment/Plan: as above Code(s): R11.2 - NAUSEA WITH VOMITING, UNSPECIFIED Qualifiers: Vomiting type: bilious vomiting Qualified Code(s): R11.14 - Bilious vomiting (3) Abdominal pain Assessment/Plan: as above Code(s): R10.9 - UNSPECIFIED ABDOMINAL PAIN Qualifiers: Abdominal location: generalized Qualified Code(s): R10.84 - Generalized abdominal pain (4) CHERYL (acute kidney injury) improved s/p ivf Code(s): N17.9 - ACUTE KIDNEY FAILURE, UNSPECIFIED (5) Leukocytosis Assessment/Plan: borderline, monitor closely Code(s): D72.829 - ELEVATED WHITE BLOOD CELL COUNT, UNSPECIFIED (6) S/P colostomy Assessment/Plan: transverse colostomy in place Code(s): Z93.3 - COLOSTOMY STATUS (7) HLD (hyperlipidemia) Assessment/Plan: stable hold statin for now Code(s): E78.5 - HYPERLIPIDEMIA, UNSPECIFIED Qualifiers: Hyperlipidemia type: pure hypercholesterolemia Qualified Code(s): E78.00 - Pure hypercholesterolemia, unspecified; E78.0 - Pure hypercholesterolemia (8) HTN (hypertension) Assessment/Plan: controlled continue losartan Code(s): I10 - ESSENTIAL (PRIMARY) HYPERTENSION Qualifiers: Hypertension type: essential hypertension Qualified Code(s): I10 - Essential (primary) hypertension Dispo: home when surgery cleared
--- NOTE | 2018-02-24 15:25 | PN ---
GI Progress Note Subjective: GI NOte : Pain has resolved. Tolerating NG tube. Only 250cc so far today. Colostomy is functioning but FUA reveals persistent partial SBO. Sesame seed oil is seen in the colostomy. - Objective Vital Signs: Vital Signs Temperature 99.3 F 02/24/18 13:39 Pulse Rate 79 02/24/18 13:39 Respiratory Rate 20 02/24/18 13:39 Blood Pressure 147/73 02/24/18 13:39 O2 Sat by Pulse Oximetry (%) 97 02/24/18 09:00 Constitutional: Calm ...Auscultate: Yes: Normoactive Bowel Sounds ...Palpate: Yes: Soft, Other (nontender) Labs: CBC, BMP 02/24/18 06:50 02/24/18 06:50 Problem List - Problems (1) SBO (small bowel obstruction) Assessment/Plan: Recurrent SBO likely due to adhesions. Will defer management to the surgical team. Code(s): K56.609 - UNSP INTESTNL OBST, UNSP TO PARTIAL VERSUS COMPLETE OBST (2) Abdominal pain Code(s): R10.9 - UNSPECIFIED ABDOMINAL PAIN Qualifiers: Abdominal location: generalized Qualified Code(s): R10.84 - Generalized abdominal pain (3) Colon polyps Code(s): K63.5 - POLYP OF COLON (4) Complication of ostomy Code(s): [id number] - (5) History of surgical removal of intestinal structure Code(s): Z98.890 - OTHER SPECIFIED POSTPROCEDURAL STATES; Z90.49 - ACQUIRED ABSENCE OF OTHER SPECIFIED PARTS OF DIGESTIVE TRACT (6) Nausea & vomiting Code(s): R11.2 - NAUSEA WITH VOMITING, UNSPECIFIED Qualifiers: Vomiting type: bilious vomiting Qualified Code(s): R11.14 - Bilious vomiting (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
--- NOTE | 2018-02-24 15:49 | PN ---
Progress Note (short form) - Note Progress Note: surgery pt seen and examined. ngt output now around 500 for past 24 hours. gas in bag yesterday with normal bm this am. abd- soft, mild distension, stomal hernia reducible kub- more air in colon and ?faint contrast by ostomy. still some dilated loops of small bowel Plan- slow improvement in psbo. cont ngt and npo. Dr. Mcintosh covering this weekend and notes will be on paper.
[2018-02-25] MEDS: HEPARIN NA (PORCINE) 5,000 UNITS/ML 1ML VIAL SQ SCH ×3 (05:52→21:47)
[2018-02-25] MEDS: DEXTROSE 5%-0.45% SALINE 1,000 ML IV SCH (06:14)
[2018-02-25 07:38] LABS: BASO % 0.8 % (0-2.0); HEMATOCRIT 40.6 % (32.4-45.2); HEMOGLOBIN 13.4 GM/dL (10.7-15.3); LYMPH % 15.2 % (8-40); MCH 29.8 pg (25.7-33.7); MCHC 33.1 g/dl (32.0-36.0); MEAN CELL VOLUME 90.2 fl (80-96); MONO % 7.4 % (3.8-10.2); NEUT % 73.6 % (42.8-82.8); PLATELET COUNT 260 K/MM3 (134-434); RDW 13.5 % (11.6-15.6); WHITE BLOOD COUNT 8.3 K/mm3 (4.0-10.0)
[2018-02-25 07:55] LABS: ANION GAP 8 MMOL/L (8-16); BLOOD UREA NITROGEN 11 mg/dL (7-18); CALCIUM 7.9 mg/dL (8.5-10.1); CHLORIDE 107 mmol/L (98-107); CO2 28 mmol/L (21-32); CREATININE 0.8 mg/dL (0.55-1.3); GLUCOSE,RANDOM 120 mg/dL (74-106); POTASSIUM 3.2 mmol/L (3.5-5.1); SODIUM 143 mmol/L (136-145)
[2018-02-25] MEDS ORDERED: POTASSIUM CHLORIDE 20 MEQ PREMIX IVPB 100 ML IVPB ONE (09:44)
--- NOTE | 2018-02-25 09:47 | PN ---
Progress Note, Physician Chief Complaint: No new complaints - Current Medication List Current Medications: Active Medications Heparin Sodium (Porcine) (Heparin -) 5,000 unit SQ TID [facility] Last Admin: 02/25/18 05:52 Dose: 5,000 unit Dextrose/Sodium Chloride (D5-1/2ns -) 1,000 mls @ 125 mls/hr IV ASDIR [facility] Last Admin: 02/25/18 06:14 Dose: 125 mls/hr Losartan Potassium (Cozaar -) 50 mg PO DAILY [facility] Last Admin: 02/24/18 10:02 Dose: 50 mg Ondansetron HCl (Zofran Injection) 4 mg IVPUSH Q6H PRN PRN Reason: NAUSEA AND/OR VOMITING Last Admin: 02/22/18 22:18 Dose: 4 mg Pantoprazole Sodium (Protonix Iv) 40 mg IVPUSH DAILY [facility] Last Admin: 02/24/18 10:03 Dose: 40 mg - Objective Vital Signs: Vital Signs Temperature 98.8 F 02/25/18 04:00 Pulse Rate 70 02/25/18 04:00 Respiratory Rate 20 02/25/18 04:00 Blood Pressure 152/80 02/25/18 04:00 O2 Sat by Pulse Oximetry (%) 97 02/24/18 21:00 Constitutional: Yes: Well Nourished, No Distress, Calm Cardiovascular: Yes: WNL, Regular Rate and Rhythm. No: Murmur Respiratory: Yes: WNL, Regular, CTA Bilaterally. No: Accessory Muscle Use, Rhonchi, SOB, Tachypnea, Wheezes Gastrointestinal: Yes: Soft, Abdomen, Obese, Hernia, Hypoactive Bowel Sounds, Other (ngt to lcws). No: Distention, Tenderness, Vomiting Genitourinary: Yes: WNL Edema: No Neurological: Yes: WNL, Alert, Oriented Psychiatric: Yes: WNL, Alert, Oriented Labs: CBC, BMP 02/25/18 06:00 02/25/18 06:00 Problem List - Problems (1) SBO (small bowel obstruction) Assessment/Plan: on NG tube improving Code(s): K56.609 - UNSP INTESTNL OBST, UNSP TO PARTIAL VERSUS COMPLETE OBST (2) CHERYL (acute kidney injury) Assessment/Plan: resolved Code(s): N17.9 - ACUTE KIDNEY FAILURE, UNSPECIFIED (3) Hypokalemia Assessment/Plan: Repleted F/U BMP Code(s): E87.6 - HYPOKALEMIA (4) HLD (hyperlipidemia) Assessment/Plan: Hold Po meds Code(s): E78.5 - HYPERLIPIDEMIA, UNSPECIFIED Qualifiers: Hyperlipidemia type: pure hypercholesterolemia Qualified Code(s): E78.00 - Pure hypercholesterolemia, unspecified; E78.0 - Pure hypercholesterolemia (5) HTN (hypertension) Assessment/Plan: Stable Code(s): I10 - ESSENTIAL (PRIMARY) HYPERTENSION Qualifiers: Hypertension type: essential hypertension Qualified Code(s): I10 - Essential (primary) hypertension
[2018-02-25] MEDS: D5-1/2NS+10 MEQ KCL - 10 MEQ/1,000 ML INFUS.BAG IV SCH (10:56)
[2018-02-25] MEDS: LOSARTAN POTASSIUM 50 MG TABLET (FP) PO SCH (10:56)
[2018-02-25] MEDS: PANTOPRAZOLE SODIUM 40 MG VIAL IVPUSH SCH (10:57)
[2018-02-25 11:02] LABS: MAGNESIUM 2.1 mg/dL (1.8-2.4)
[2018-02-25] MEDS: KCL 10 MEQ IVPB 10 MEQ/100 ML INFUS.BAG IVPB SCH ×2 (11:34→16:12)
[2018-02-26] MEDS: D5-1/2NS+10 MEQ KCL - 10 MEQ/1,000 ML INFUS.BAG IV SCH ×2 (01:48→09:52)
[2018-02-26] MEDS: HEPARIN NA (PORCINE) 5,000 UNITS/ML 1ML VIAL SQ SCH ×3 (05:01→22:06)
[2018-02-26 09:41] LABS: HEMATOCRIT 40.4 % (32.4-45.2); HEMOGLOBIN 13.6 GM/dL (10.7-15.3); MCH 30.3 pg (25.7-33.7); MCHC 33.7 g/dl (32.0-36.0); MEAN CELL VOLUME 89.9 fl (80-96); MEAN PLT VOLUME 7.6 fl (7.5-11.1); PLATELET COUNT 274 K/MM3 (134-434); RBC 4.49 M/mm3 (3.60-5.2); RDW 13.8 % (11.6-15.6); WHITE BLOOD COUNT 8.1 K/mm3 (4.0-10.0)
[2018-02-26] MEDS: LOSARTAN POTASSIUM 50 MG TABLET (FP) PO SCH (09:52)
[2018-02-26] MEDS: PANTOPRAZOLE SODIUM 40 MG VIAL IVPUSH SCH (09:52)
[2018-02-26 10:18] LABS: ANION GAP 12 MMOL/L (8-16); BLOOD UREA NITROGEN 9 mg/dL (7-18); CALCIUM 8.4 mg/dL (8.5-10.1); CHLORIDE 106 mmol/L (98-107); CO2 28 mmol/L (21-32); CREATININE 0.8 mg/dL (0.55-1.3); GLUCOSE,RANDOM 111 mg/dL (74-106); POTASSIUM 3.6 mmol/L (3.5-5.1); SODIUM 145 mmol/L (136-145)
--- NOTE | 2018-02-26 11:01 | PN ---
Progress Note, Physician Chief Complaint: No new complaints - Current Medication List Current Medications: Active Medications Heparin Sodium (Porcine) (Heparin -) 5,000 unit SQ TID [facility] Last Admin: 02/26/18 05:01 Dose: 5,000 unit Potassium Chloride/Dextrose/Sod Cl (D5-1/2ns+10 Meq Kcl -) 10 meq in 1,000 mls @ 100 mls/hr IV ASDIR [facility] Last Admin: 02/26/18 09:52 Dose: Not Given Losartan Potassium (Cozaar -) 50 mg PO DAILY [facility] Last Admin: 02/26/18 09:52 Dose: 50 mg Ondansetron HCl (Zofran Injection) 4 mg IVPUSH Q6H PRN PRN Reason: NAUSEA AND/OR VOMITING Last Admin: 02/22/18 22:18 Dose: 4 mg Pantoprazole Sodium (Protonix Iv) 40 mg IVPUSH DAILY [facility] Last Admin: 02/26/18 09:52 Dose: 40 mg - Objective Vital Signs: Vital Signs Temperature 98.4 F 02/26/18 06:53 Pulse Rate 74 02/26/18 06:53 Respiratory Rate 20 02/26/18 06:53 Blood Pressure 158/73 02/26/18 06:53 O2 Sat by Pulse Oximetry (%) 98 02/25/18 22:00 Constitutional: Yes: Well Nourished, No Distress, Calm Cardiovascular: Yes: WNL, Regular Rate and Rhythm. No: Murmur Respiratory: Yes: WNL, Regular, CTA Bilaterally. No: Accessory Muscle Use, Rhonchi, SOB, Tachypnea, Wheezes Gastrointestinal: Yes: Soft, Abdomen, Obese, Hernia, Hypoactive Bowel Sounds, Other (ngt to lcws). No: Distention, Tenderness, Vomiting Genitourinary: Yes: WNL Edema: No Neurological: Yes: WNL, Alert, Oriented Psychiatric: Yes: WNL, Alert, Oriented Labs: CBC, BMP 02/26/18 09:10 02/26/18 09:10 Problem List - Problems (1) SBO (small bowel obstruction) Assessment/Plan: on NG tube improving Code(s): K56.609 - UNSP INTESTNL OBST, UNSP TO PARTIAL VERSUS COMPLETE OBST (2) CHERYL (acute kidney injury) Assessment/Plan: resolved Code(s): N17.9 - ACUTE KIDNEY FAILURE, UNSPECIFIED (3) Hypokalemia Assessment/Plan: resolved Code(s): E87.6 - HYPOKALEMIA (4) HLD (hyperlipidemia) Assessment/Plan: Hold Po meds Code(s): E78.5 - HYPERLIPIDEMIA, UNSPECIFIED Qualifiers: Hyperlipidemia type: pure hypercholesterolemia Qualified Code(s): E78.00 - Pure hypercholesterolemia, unspecified; E78.0 - Pure hypercholesterolemia (5) HTN (hypertension) Assessment/Plan: Stable Code(s): I10 - ESSENTIAL (PRIMARY) HYPERTENSION Qualifiers: Hypertension type: essential hypertension Qualified Code(s): I10 - Essential (primary) hypertension
[2018-02-27] MEDS: D5-1/2NS+10 MEQ KCL - 10 MEQ/1,000 ML INFUS.BAG IV SCH ×2 (01:47→16:47)
[2018-02-27] MEDS: HEPARIN NA (PORCINE) 5,000 UNITS/ML 1ML VIAL SQ SCH ×2 (05:15→14:01)
[2018-02-27 06:17] LABS: BASO % 0.4 % (0-2.0); EOS % 1.7 % (0-4.5); HEMATOCRIT 35.5 % (32.4-45.2); HEMOGLOBIN 11.7 GM/dL (10.7-15.3); LYMPH % 13.1 % (8-40); MCH 29.9 pg (25.7-33.7); MCHC 33.1 g/dl (32.0-36.0); MEAN CELL VOLUME 90.3 fl (80-96); MEAN PLT VOLUME 7.3 fl (7.5-11.1); NEUT % 76.8 % (42.8-82.8); PLATELET COUNT 196 K/MM3 (134-434); RBC 3.93 M/mm3 (3.60-5.2); RDW 13.5 % (11.6-15.6); WHITE BLOOD COUNT 6.5 K/mm3 (4.0-10.0)
[2018-02-27 06:38] LABS: ANION GAP 9 MMOL/L (8-16); BLOOD UREA NITROGEN 8 mg/dL (7-18); CALCIUM 8.1 mg/dL (8.5-10.1); CHLORIDE 105 mmol/L (98-107); CO2 30 mmol/L (21-32); CREATININE 0.7 mg/dL (0.55-1.3); GLUCOSE,RANDOM 130 mg/dL (74-106); SODIUM 144 mmol/L (136-145)
[2018-02-27] MEDS: PANTOPRAZOLE SODIUM 40 MG VIAL IVPUSH SCH (10:28)
[2018-02-27] MEDS: LOSARTAN POTASSIUM 50 MG TABLET (FP) PO SCH (10:28)
[2018-02-27] MEDS ORDERED: AMINO ACIDS 4.25%/D5W 1,000 ML IV SCH (11:30)
--- NOTE | 2018-02-27 11:32 | PN ---
GI Progress Note Subjective: GI NOte: NO further pain. Gastric drainage only 550c c yesterday. Colostomy output has diminished but has been NPO. Today's FUA appears much improved - Objective Vital Signs: Vital Signs Temperature 99.7 F H 02/27/18 06:00 Pulse Rate 74 02/27/18 06:00 Respiratory Rate 20 02/27/18 06:00 Blood Pressure 146/69 02/27/18 06:00 O2 Sat by Pulse Oximetry (%) 98 02/26/18 21:00 Laboratory Tests 02/27/18 02/27/18 05:30 05:30 WBC 6.5 Hgb 11.7 BUN 8 Creatinine 0.7 Constitutional: Calm ...Auscultate: Yes: Normoactive Bowel Sounds ...Palpate: Yes: Soft, Other (nontender) Labs: CBC, BMP 02/27/18 05:30 02/27/18 05:30 Problem List - Problems (1) SBO (small bowel obstruction) Assessment/Plan: Believe that the SBO has resolved but will defer to surgery who have to make the ultimate decision. Anticipate that NG will be clamped and pulled out. Feels weak. Will start Clinimix and intralipids until surgical decision is made Code(s): K56.609 - UNSP INTESTNL OBST, UNSP TO PARTIAL VERSUS COMPLETE OBST (2) Abdominal pain Code(s): R10.9 - UNSPECIFIED ABDOMINAL PAIN Qualifiers: Abdominal location: generalized Qualified Code(s): R10.84 - Generalized abdominal pain (3) Colon polyps Code(s): K63.5 - POLYP OF COLON (4) Complication of ostomy Code(s): [id number] - (5) History of surgical removal of intestinal structure Code(s): Z98.890 - OTHER SPECIFIED POSTPROCEDURAL STATES; Z90.49 - ACQUIRED ABSENCE OF OTHER SPECIFIED PARTS OF DIGESTIVE TRACT (6) Nausea & vomiting Code(s): R11.2 - NAUSEA WITH VOMITING, UNSPECIFIED Qualifiers: Vomiting type: bilious vomiting Qualified Code(s): R11.14 - Bilious vomiting (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
[2018-02-27 11:50] VITALS: BMI 34.0
[2018-02-27] MEDS ORDERED: PT OWN MED DRAWER 7, Y5N ONE (11:56)
--- NOTE | 2018-02-27 13:25 | PN ---
Progress Note, Physician Chief Complaint: Pt sitting in bed in no acute distress. feels hungry. Denies any chest pain, sob, n/v/d - Current Medication List Current Medications: Active Medications Heparin Sodium (Porcine) (Heparin -) 5,000 unit SQ TID [facility] Last Admin: 02/27/18 05:15 Dose: 5,000 unit Potassium Chloride/Dextrose/Sod Cl (D5-1/2ns+10 Meq Kcl -) 10 meq in 1,000 mls @ 30 mls/hr IV ASDIR [facility] Amino Acids (Clinimix -) 1,000 mls @ 42 mls/hr IV Q23H [facility] Fat Emulsion Intravenous (Intralipid -) 250 mls @ 20.833 mls/hr IV DAILY@2200 [facility] Losartan Potassium (Cozaar -) 50 mg PO DAILY [facility] Last Admin: 02/27/18 10:28 Dose: 50 mg Multivitamins/Minerals (Infuvite Adult -) 10 ml IV Q24H [facility] Ondansetron HCl (Zofran Injection) 4 mg IVPUSH Q6H PRN PRN Reason: NAUSEA AND/OR VOMITING Last Admin: 02/22/18 22:18 Dose: 4 mg Pantoprazole Sodium (Protonix Iv) 40 mg IVPUSH DAILY [facility] Last Admin: 02/27/18 10:28 Dose: 40 mg - Objective Vital Signs: Vital Signs Temperature 99.7 F H 02/27/18 06:00 Pulse Rate 74 02/27/18 06:00 Respiratory Rate 20 02/27/18 06:00 Blood Pressure 146/69 02/27/18 06:00 O2 Sat by Pulse Oximetry (%) 98 02/26/18 21:00 Constitutional: Yes: Well Nourished, No Distress, Calm Cardiovascular: Yes: WNL, Regular Rate and Rhythm Respiratory: Yes: WNL, Regular, CTA Bilaterally. No: Accessory Muscle Use, SOB , Tachypnea, Wheezes Gastrointestinal: Yes: Normal Bowel Sounds, Soft, Abdomen, Obese, Hernia, Other (colostomy in place). No: Distention, Tenderness Genitourinary: Yes: WNL Edema: No Neurological: Yes: WNL, Alert, Oriented Psychiatric: Yes: WNL, Alert, Oriented Labs: CBC, BMP 02/27/18 05:30 02/27/18 05:30 Assessment/Plan (1) SBO (small bowel obstruction) Assessment/Plan: kub this am shows resolution of sbo abd exam benign remove ngt, maintain npo by tomorrow per surgery clinimix, lipids for nutrition clear liquids tomorrow am Strict I&O's Antiemetics/analgesics prn conservative management per surgery- trial of sesame/olive oil Code(s): K56.609 - UNSP INTESTNL OBST, UNSP TO PARTIAL VERSUS COMPLETE OBST (2) Nausea & vomiting Assessment/Plan: as above Code(s): R11.2 - NAUSEA WITH VOMITING, UNSPECIFIED Qualifiers: Vomiting type: bilious vomiting Qualified Code(s): R11.14 - Bilious vomiting (3) Abdominal pain Assessment/Plan: as above Code(s): R10.9 - UNSPECIFIED ABDOMINAL PAIN Qualifiers: Abdominal location: generalized Qualified Code(s): R10.84 - Generalized abdominal pain (4) CHERYL (acute kidney injury) improved s/p ivf Code(s): N17.9 - ACUTE KIDNEY FAILURE, UNSPECIFIED (5) Leukocytosis Assessment/Plan: resolved Code(s): D72.829 - ELEVATED WHITE BLOOD CELL COUNT, UNSPECIFIED (6) S/P colostomy Assessment/Plan: transverse colostomy in place Code(s): Z93.3 - COLOSTOMY STATUS (7) HLD (hyperlipidemia) Assessment/Plan: stable hold statin for now Code(s): E78.5 - HYPERLIPIDEMIA, UNSPECIFIED Qualifiers: Hyperlipidemia type: pure hypercholesterolemia Qualified Code(s): E78.00 - Pure hypercholesterolemia, unspecified; E78.0 - Pure hypercholesterolemia (8) HTN (hypertension) Assessment/Plan: controlled continue losartan Code(s): I10 - ESSENTIAL (PRIMARY) HYPERTENSION Qualifiers: Hypertension type: essential hypertension Qualified Code(s): I10 - Essential (primary) hypertension Dispo: home when surgery cleared
[2018-02-27] MEDS: MULTIVIT INJ. ADULT COMBO WITH VIT K 1 COMBO 10 ML VIAL IV SCH (14:00)
[2018-02-27] MEDS: AMINO ACIDS 4.25%/D5W 1,000 ML IV SCH (14:01)
[2018-02-27] MEDS ORDERED: PIPERACILLIN/TAZOB 3.375 GM 3.375 GM in DEXTROSE 5%-WATER - 50 ML IVPB ONE ×2 (15:49→23:00)
[2018-02-27] MEDS ORDERED: ACETAMINOPHEN 1000 MG/100 ML VIAL (NON FORMULARY) IVPB PRN (16:19)
[2018-02-27] MEDS ORDERED: DEXTROSE 5%-WATER - 50 ML IVPB ONE ×2 (17:28→22:27)
[2018-02-27] MEDS ORDERED: PIPERACILLIN/TAZOBACTAM 3.375 GM VIAL IVPB ONE ×2 (17:28→22:27)
[2018-02-27 21:23] LABS: URINE APPEARANCE CLEAR; URINE BILIRUBIN NEGATIVE (<2.0 mg/dL); URINE COLOR LTYELLOW; URINE GLUCOSE (UA) NEGATIVE (NEGATIVE); URINE KETONE NEGATIVE (NEGATIVE); URINE LEUK ESTERASE TRACE (NEGATIVE); URINE NITRITE NEGATIVE (NEGATIVE); URINE PROTEIN NEGATIVE (NEGATIVE); URINE UROBILINOGEN NEGATIVE mg/dL (0.2-1.0)
[2018-02-27 21:27] LABS: EPI CELLS RARE /HPF (FEW); URINE BACTERIA RARE /hpf (NONE SEEN); URINE MUCUS RARE
[2018-02-27] MEDS ORDERED: FAT EMULSIONS 20% 250 ML PREMIX INFUS.BAG IV SCH (22:00)
[2018-02-27] MEDS: FAT EMULSIONS 250 ML IV SCH (22:54)
[2018-02-28] MEDS ORDERED: PIPERACILLIN/TAZOB 3.375 GM 3.375 GM in DEXTROSE 5%-WATER - 50 ML IVPB ONE (09:02)
[2018-02-28] MEDS ORDERED: DEXTROSE 5%-WATER - 50 ML IVPB ONE ×2 (09:50→17:28)
[2018-02-28] MEDS ORDERED: PIPERACILLIN/TAZOBACTAM 3.375 GM VIAL IVPB ONE ×2 (09:50→17:28)
[2018-02-28] MEDS: PANTOPRAZOLE SODIUM 40 MG VIAL IVPUSH SCH (10:09)
[2018-02-28] MEDS: LOSARTAN POTASSIUM 50 MG TABLET (FP) PO SCH (10:09)
--- NOTE | 2018-02-28 11:35 | CON.ID ---
Consult Consult Specialty:: infectious diseases Referred by:: Misty Reason for Consultation:: fever - History of Present Illness Chief Complaint: abd pain,fever History of Present Illness: this patient known to me from last admission coming again to the hospital for intestinal obstruction patient is again being managed conservatively patient has been in the hospital for 3 days and now she has started spiking fevers discussed with the primary care yesterday and started her on abx now patients fever ahs subsided and she is feeling better also she is noticing some gases in the colostomy bag patient currently on clinimax and lipids - History Source History Provided By: Patient Limitations to Obtaining History: No Limitations - Past Medical History Cardio/Vascular: Yes: HTN, Hyperlipdemia Gastrointestinal: Yes: Diverticulitis (with sigmoid stricture requiring excision on 10/11/14 followed by [facility] Procedure), Diverticulosis, Peptic Ulcer Disease, Other (Colon polyps removed 2002, transverse colostomy following sigmoid stricture repair, recurring SBO) Renal/: Yes: Cancer (Left breast ca , DCIS managed with lumpectomy and RT in 2005) - Past Surgical History Past Surgical History: Yes: Breast Biopsy, Cataract Removal, Hysterectomy ( vaginal YIN 1978 ), Tonsillectomy - Alcohol/Substance Use Hx Alcohol Use: Yes (SOCIAL) History of Substance Use: reports: None - Smoking History Smoking history: Never smoked - Social History Usual Living Arrangement: With Spouse ADL: Independent 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 History of Recent Travel: No Home Medications - Allergies Allergies/Adverse Reactions: Allergies Allergy/AdvReac Type Severity Reaction Status Date / Time sulfamethoxazole Allergy Severe Rash Verified 02/21/18 09:34 [From Bactrim] trimethoprim [From Bactrim] Allergy Severe Rash Verified 02/21/18 09:34 levofloxacin [From Levaquin] Allergy Hives Verified 02/21/18 09:34 - Home Medications Home Medications: Ambulatory Orders Pantoprazole Sodium [Protonix] 40 mg PO DAILY 10/09/14 Simvastatin [Zocor -] 20 mg PO HS 10/09/14 Losartan Potassium 50 mg PO DAILY 02/14/18 Multivitamin/Iron/Folic Acid [Centrum Adults Tablet] 1 each PO DAILY 02/14/18 Family Disease History - Family Disease History Family Disease History: Heart Disease: Mother (CA, diverticulitis surgery), CA: Father (lung cancer), Other: Brother (colon polyps) Review of Systems - Review of Systems Constitutional: reports: Fever Eyes: reports: No Symptoms HENT: reports: No Symptoms Neck: reports: No Symptoms Cardiovascular: reports: No Symptoms Respiratory: reports: No Symptoms Gastrointestinal: reports: Abdominal Pain Genitourinary: reports: No Symptoms Musculoskeletal: reports: No Symptoms Integumentary: reports: No Symptoms Neurological: reports: No Symptoms Endocrine: reports: No Symptoms Hematology/Lymphatic: reports: No Symptoms Psychiatric: reports: No Symptoms Physical Exam Vital Signs: Vital Signs Temperature 98.6 F 02/28/18 05:51 Pulse Rate 65 02/28/18 05:51 Respiratory Rate 20 02/28/18 05:51 Blood Pressure 164/75 02/28/18 05:51 O2 Sat by Pulse Oximetry (%) 96 02/27/18 21:00 Constitutional: Yes: Well Nourished, No Distress, Calm Cardiovascular: Yes: Regular Rate and Rhythm Respiratory: Yes: Regular, CTA Bilaterally Gastrointestinal: Yes: Soft, Other (absent bowel sounds,ostomy bafg in place) Musculoskeletal: Yes: WNL Extremities: Yes: WNL Neurological: Yes: Alert, Oriented Psychiatric: Yes: Alert, Oriented Labs: CBC, BMP 02/27/18 05:30 02/27/18 05:30 Imaging - Results Chest X-ray: Report Reviewed, Image Reviewed X-ray: Report Reviewed, Image Reviewed Cat Scan: Report Reviewed, Image Reviewed Assessment/Plan Assessment/Plan (1) SBO (small bowel obstruction) Code(s): K56.609 - UNSP INTESTNL OBST, UNSP TO PARTIAL VERSUS COMPLETE OBST (2) Nausea & vomiting Assessment/Plan: as above Code(s): R11.2 - NAUSEA WITH VOMITING, UNSPECIFIED Qualifiers: Vomiting type: bilious vomiting Qualified Code(s): R11.14 - Bilious vomiting (3) Abdominal pain Code(s): R10.9 - UNSPECIFIED ABDOMINAL PAIN Qualifiers: Abdominal location: generalized Qualified Code(s): R10.84 - Generalized abdominal pain (4) CHERYL (acute kidney injury) Code(s): N17.9 - ACUTE KIDNEY FAILURE, UNSPECIFIED (5) Leukocytosis Code(s): D72.829 - ELEVATED WHITE BLOOD CELL COUNT, UNSPECIFIED (6) S/P colostomy Code(s): Z93.3 - COLOSTOMY STATUS (7) HLD (hyperlipidemia) Code(s): E78.5 - HYPERLIPIDEMIA, UNSPECIFIED Qualifiers: Hyperlipidemia type: pure hypercholesterolemia Qualified Code(s): E78.00 - Pure hypercholesterolemia, unspecified; E78.0 - Pure hypercholesterolemia (8) HTN (hypertension) Code(s): I10 - ESSENTIAL (PRIMARY) HYPERTENSION Qualifiers: Hypertension type: essential hypertension Qualified Code(s): I10 - Essential (primary) hypertension 9 fever plan continue zosyn await for bowel fn to return nutrition await for cx reports rest as per the team
--- NOTE | 2018-02-28 12:41 | PN ---
Progress Note, Physician Chief Complaint: Pt sitting in bed in no acute distress. tolerating clears. Denies any chest pain, sob, n/v/d - Current Medication List Current Medications: Active Medications Acetaminophen (Ofirmev Injection -) 1,000 mg IVPB Q6H PRN PRN Reason: FEVER Last Admin: 02/27/18 16:44 Dose: 1,000 mg Amino Acids (Clinimix -) 1,000 mls @ 42 mls/hr IV Q23H [facility] Last Admin: 02/27/18 14:01 Dose: 42 mls/hr Fat Emulsion Intravenous (Intralipid -) 250 mls @ 20.833 mls/hr IV DAILY@2200 [facility] Last Admin: 02/27/18 22:54 Dose: 20.833 mls/hr Piperacillin Sod/Tazobactam (Sod 3.375 gm/ Dextrose) 50 mls @ 100 mls/hr IVPB Q8H-IV [facility]; Protocol Losartan Potassium (Cozaar -) 50 mg PO DAILY [facility] Last Admin: 02/28/18 10:09 Dose: 50 mg Multivitamins/Minerals (Infuvite Adult -) 10 ml IV Q24H [facility] Last Admin: 02/27/18 14:00 Dose: 10 ml Ondansetron HCl (Zofran Injection) 4 mg IVPUSH Q6H PRN PRN Reason: NAUSEA AND/OR VOMITING Last Admin: 02/22/18 22:18 Dose: 4 mg Pantoprazole Sodium (Protonix Iv) 40 mg IVPUSH DAILY [facility] Last Admin: 02/28/18 10:09 Dose: 40 mg - Objective Vital Signs: Vital Signs Temperature 98.6 F 02/28/18 05:51 Pulse Rate 65 02/28/18 05:51 Respiratory Rate 20 02/28/18 05:51 Blood Pressure 164/75 02/28/18 05:51 O2 Sat by Pulse Oximetry (%) 96 02/27/18 21:00 Constitutional: Yes: Well Nourished, No Distress, Calm Cardiovascular: Yes: WNL, Regular Rate and Rhythm Respiratory: Yes: WNL, Regular, CTA Bilaterally. No: Accessory Muscle Use, SOB , Tachypnea, Wheezes Gastrointestinal: Yes: WNL, Normal Bowel Sounds, Soft, Abdomen, Obese, Hernia, Other (colostomy w/ function). No: Distention, Tenderness Genitourinary: Yes: WNL Musculoskeletal: Yes: WNL Extremities: Yes: WNL Edema: No Neurological: Yes: WNL, Alert, Oriented Psychiatric: Yes: WNL, Alert, Oriented Labs: CBC, BMP 02/27/18 05:30 02/27/18 05:30 Assessment/Plan (1) SBO (small bowel obstruction) Assessment/Plan: resolved w/ conservative management clinimix, lipids for nutrition tolerating clear liquids Strict I&O's Antiemetics/analgesics prn surgery following Code(s): K56.609 - UNSP INTESTNL OBST, UNSP TO PARTIAL VERSUS COMPLETE OBST (2) Fever Assessment/Plan: febrile to 102.2f yesterday lactic acid wnl, wbc wnl suspect possible translocation UA/UC, blood cultures ordered chest xray neg continue Zosyn ID following Code(s): R50.9 - FEVER, UNSPECIFIED Qualifiers: Encounter type: initial encounter (3) Nausea & vomiting Assessment/Plan: resolved Code(s): R11.2 - NAUSEA WITH VOMITING, UNSPECIFIED Qualifiers: Vomiting type: bilious vomiting Qualified Code(s): R11.14 - Bilious vomiting (4) Abdominal pain Assessment/Plan: resolved Code(s): R10.9 - UNSPECIFIED ABDOMINAL PAIN Qualifiers: Abdominal location: generalized Qualified Code(s): R10.84 - Generalized abdominal pain (5) CHERYL (acute kidney injury) resolved Code(s): N17.9 - ACUTE KIDNEY FAILURE, UNSPECIFIED (6) Leukocytosis Assessment/Plan: resolved Code(s): D72.829 - ELEVATED WHITE BLOOD CELL COUNT, UNSPECIFIED (7) S/P colostomy Assessment/Plan: transverse colostomy in place Code(s): Z93.3 - COLOSTOMY STATUS (8) HLD (hyperlipidemia) Assessment/Plan: stable statin Code(s): E78.5 - HYPERLIPIDEMIA, UNSPECIFIED Qualifiers: Hyperlipidemia type: pure hypercholesterolemia Qualified Code(s): E78.00 - Pure hypercholesterolemia, unspecified; E78.0 - Pure hypercholesterolemia (9) HTN (hypertension) Assessment/Plan: BP trend slightly elevated sbp 150s-160s increase losartan to 100mg and monitor Code(s): I10 - ESSENTIAL (PRIMARY) HYPERTENSION Qualifiers: Hypertension type: essential hypertension Qualified Code(s): I10 - Essential (primary) hypertension Dispo: home when surgery and ID cleared
--- NOTE | 2018-02-28 12:46 | PN ---
Progress Note (short form) - Note Progress Note: surgery pt seen and examined. tolerating clear liquids. flatus in bag abd- soft, nt, parastomal hernia reducible Plan- resolving psbo. suggest discharge tomorrow on no particle liquids (milk, ice cream) for 1 week then low fiber diet for 1 month then avoid large fiber boluses in the future. will be available
[2018-02-28] MEDS: AMINO ACIDS 4.25%/D5W 1,000 ML IV SCH (13:18)
[2018-02-28] MEDS: MULTIVIT INJ. ADULT COMBO WITH VIT K 1 COMBO 10 ML VIAL IV SCH (13:32)
--- NOTE | 2018-02-28 18:07 | PN ---
GI Progress Note Subjective: GI NOte: Tolerating NG out and liquids. No vomiting or pain. Colostomy output increaisng - Objective Vital Signs: Vital Signs Temperature 98.5 F 02/28/18 17:30 Pulse Rate 70 02/28/18 17:30 Respiratory Rate 20 02/28/18 17:30 Blood Pressure 142/61 02/28/18 17:30 O2 Sat by Pulse Oximetry (%) 98 02/28/18 09:00 Constitutional: Calm ...Auscultate: Yes: Normoactive Bowel Sounds ...Palpate: Yes: Soft, Other (nontender) Labs: CBC, BMP 02/27/18 05:30 02/27/18 05:30 Problem List - Problems (1) SBO (small bowel obstruction) Assessment/Plan: SBO has resolved. Will defer diet advancements to surgery who have to make the ultimate decision. Code(s): K56.609 - UNSP INTESTNL OBST, UNSP TO PARTIAL VERSUS COMPLETE OBST (2) Abdominal pain Code(s): R10.9 - UNSPECIFIED ABDOMINAL PAIN Qualifiers: Abdominal location: generalized Qualified Code(s): R10.84 - Generalized abdominal pain (3) Colon polyps Code(s): K63.5 - POLYP OF COLON (4) Complication of ostomy Code(s): [id number] - (5) History of surgical removal of intestinal structure Code(s): Z98.890 - OTHER SPECIFIED POSTPROCEDURAL STATES; Z90.49 - ACQUIRED ABSENCE OF OTHER SPECIFIED PARTS OF DIGESTIVE TRACT (6) Nausea & vomiting Code(s): R11.2 - NAUSEA WITH VOMITING, UNSPECIFIED Qualifiers: Vomiting type: bilious vomiting Qualified Code(s): R11.14 - Bilious vomiting (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
[2018-02-28] MEDS: D5-1/2NS+10 MEQ KCL - 10 MEQ/1,000 ML INFUS.BAG IV SCH (18:12)
[2018-02-28] MEDS: PIPERACILLIN/TAZOB 3.375 GM 3.375 GM in DEXTROSE 5%-WATER - 50 ML IVPB SCH (18:12)
[2018-02-28] MEDS ORDERED: PT OWN MED DRAWER 7, Y5N ONE (20:16)
[2018-03-01] MEDS ORDERED: DEXTROSE 5%-WATER - 50 ML IVPB ONE ×2 (01:02→09:51)
[2018-03-01] MEDS ORDERED: PIPERACILLIN/TAZOBACTAM 3.375 GM VIAL IVPB ONE ×2 (01:02→09:51)
[2018-03-01] MEDS: PIPERACILLIN/TAZOB 3.375 GM 3.375 GM in DEXTROSE 5%-WATER - 50 ML IVPB SCH ×2 (01:14→09:56)
[2018-03-01] MEDS: FAT EMULSIONS 250 ML IV SCH (01:31)
[2018-03-01 06:51] LABS: ANION GAP 6 MMOL/L (8-16); BLOOD UREA NITROGEN 15 mg/dL (7-18); CALCIUM 8.6 mg/dL (8.5-10.1); CHLORIDE 104 mmol/L (98-107); CO2 31 mmol/L (21-32); CREATININE 0.9 mg/dL (0.55-1.3); GLUCOSE,RANDOM 122 mg/dL (74-106); MAGNESIUM 2.1 mg/dL (1.8-2.4); POTASSIUM 3.5 mmol/L (3.5-5.1); SODIUM 141 mmol/L (136-145)
[2018-03-01 06:54] LABS: BASO % 0.8 % (0-2.0); EOS % 6.9 % (0-4.5); HEMATOCRIT 36.2 % (32.4-45.2); LYMPH % 16.8 % (8-40); MCH 30.1 pg (25.7-33.7); MCHC 33.3 g/dl (32.0-36.0); MEAN CELL VOLUME 90.4 fl (80-96); MEAN PLT VOLUME 7.7 fl (7.5-11.1); MONO % 8.8 % (3.8-10.2); NEUT % 66.7 % (42.8-82.8); PLATELET COUNT 216 K/MM3 (134-434); RDW 13.3 % (11.6-15.6); WHITE BLOOD COUNT 4.7 K/mm3 (4.0-10.0)
--- NOTE | 2018-03-01 09:43 | PN ---
Progress Note, Physician History of Present Illness: patient stable no new issues colostomy working well no fevers - Current Medication List Current Medications: Active Medications Acetaminophen (Ofirmev Injection -) 1,000 mg IVPB Q6H PRN PRN Reason: FEVER Last Admin: 02/27/18 16:44 Dose: 1,000 mg Amino Acids (Clinimix -) 1,000 mls @ 42 mls/hr IV Q23H [facility] Last Admin: 02/28/18 13:18 Dose: 42 mls/hr Fat Emulsion Intravenous (Intralipid -) 250 mls @ 20.833 mls/hr IV DAILY@2200 [facility] Last Admin: 03/01/18 01:31 Dose: 20.833 mls/hr Piperacillin Sod/Tazobactam (Sod 3.375 gm/ Dextrose) 50 mls @ 100 mls/hr IVPB Q8H-IV [facility]; Protocol Last Admin: 03/01/18 01:14 Dose: 100 mls/hr Losartan Potassium (Cozaar -) 100 mg PO DAILY [facility] Multivitamins/Minerals (Infuvite Adult -) 10 ml IV Q24H [facility] Last Admin: 02/28/18 13:32 Dose: 10 ml Ondansetron HCl (Zofran Injection) 4 mg IVPUSH Q6H PRN PRN Reason: NAUSEA AND/OR VOMITING Last Admin: 02/22/18 22:18 Dose: 4 mg Pantoprazole Sodium (Protonix Iv) 40 mg IVPUSH DAILY [facility] Last Admin: 02/28/18 10:09 Dose: 40 mg - Objective Vital Signs: Vital Signs Temperature 98.8 F 03/01/18 05:54 Pulse Rate 67 03/01/18 05:54 Respiratory Rate 20 03/01/18 05:54 Blood Pressure 143/73 03/01/18 05:54 O2 Sat by Pulse Oximetry (%) 98 02/28/18 21:00 Constitutional: Yes: No Distress, Calm Cardiovascular: Yes: Regular Rate and Rhythm Respiratory: Yes: Regular, CTA Bilaterally Gastrointestinal: Yes: Normal Bowel Sounds, Soft, Other (colostomy in place) Musculoskeletal: Yes: WNL Extremities: Yes: WNL Neurological: Yes: Alert Psychiatric: Yes: Alert, Oriented Labs: CBC, BMP 03/01/18 05:30 03/01/18 05:30 Assessment/Plan Assessment/Plan (1) SBO (small bowel obstruction) Code(s): K56.609 - UNSP INTESTNL OBST, UNSP TO PARTIAL VERSUS COMPLETE OBST (2) Nausea & vomiting Assessment/Plan: as above Code(s): R11.2 - NAUSEA WITH VOMITING, UNSPECIFIED Qualifiers: Vomiting type: bilious vomiting Qualified Code(s): R11.14 - Bilious vomiting (3) Abdominal pain Code(s): R10.9 - UNSPECIFIED ABDOMINAL PAIN Qualifiers: Abdominal location: generalized Qualified Code(s): R10.84 - Generalized abdominal pain (4) CHERYL (acute kidney injury) Code(s): N17.9 - ACUTE KIDNEY FAILURE, UNSPECIFIED (5) Leukocytosis Code(s): D72.829 - ELEVATED WHITE BLOOD CELL COUNT, UNSPECIFIED (6) S/P colostomy Code(s): Z93.3 - COLOSTOMY STATUS (7) HLD (hyperlipidemia) Code(s): E78.5 - HYPERLIPIDEMIA, UNSPECIFIED Qualifiers: Hyperlipidemia type: pure hypercholesterolemia Qualified Code(s): E78.00 - Pure hypercholesterolemia, unspecified; E78.0 - Pure hypercholesterolemia (8) HTN (hypertension) Code(s): I10 - ESSENTIAL (PRIMARY) HYPERTENSION Qualifiers: Hypertension type: essential hypertension Qualified Code(s): I10 - Essential (primary) hypertension 9 fever plan can change to augmentin for 3 more days rest as per the team patients obstruction has resolved
[2018-03-01] MEDS ORDERED: PT OWN MED DRAWER 7, Y5N ONE (09:51)
[2018-03-01] MEDS: LOSARTAN POTASSIUM 50 MG TABLET (FP) PO SCH (09:56)
[2018-03-01] MEDS: PANTOPRAZOLE SODIUM 40 MG VIAL IVPUSH SCH (09:57)
--- NOTE | 2018-03-01 10:01 | PN ---
Progress Note, Physician Chief Complaint: Pt sitting in bed in no acute distress. tolerating clears. however feeling dizzy , weak today. Denies any chest pain, sob, n/v/d - Current Medication List Current Medications: Active Medications Acetaminophen (Ofirmev Injection -) 1,000 mg IVPB Q6H PRN PRN Reason: FEVER Last Admin: 02/27/18 16:44 Dose: 1,000 mg Amino Acids (Clinimix -) 1,000 mls @ 42 mls/hr IV Q23H [facility] Last Admin: 02/28/18 13:18 Dose: 42 mls/hr Fat Emulsion Intravenous (Intralipid -) 250 mls @ 20.833 mls/hr IV DAILY@2200 [facility] Last Admin: 03/01/18 01:31 Dose: 20.833 mls/hr Piperacillin Sod/Tazobactam (Sod 3.375 gm/ Dextrose) 50 mls @ 100 mls/hr IVPB Q8H-IV [facility]; Protocol Last Admin: 03/01/18 01:14 Dose: 100 mls/hr Losartan Potassium (Cozaar -) 100 mg PO DAILY [facility] Multivitamins/Minerals (Infuvite Adult -) 10 ml IV Q24H [facility] Last Admin: 02/28/18 13:32 Dose: 10 ml Ondansetron HCl (Zofran Injection) 4 mg IVPUSH Q6H PRN PRN Reason: NAUSEA AND/OR VOMITING Last Admin: 02/22/18 22:18 Dose: 4 mg Pantoprazole Sodium (Protonix Iv) 40 mg IVPUSH DAILY [facility] Last Admin: 02/28/18 10:09 Dose: 40 mg - Objective Vital Signs: Vital Signs Temperature 98.8 F 03/01/18 05:54 Pulse Rate 67 03/01/18 05:54 Respiratory Rate 20 03/01/18 05:54 Blood Pressure 143/73 03/01/18 05:54 O2 Sat by Pulse Oximetry (%) 98 02/28/18 21:00 Constitutional: Yes: Well Nourished, No Distress, Calm Cardiovascular: Yes: WNL, Regular Rate and Rhythm. No: Murmur Respiratory: Yes: WNL, Regular, CTA Bilaterally. No: Accessory Muscle Use, SOB , Tachypnea, Wheezes Gastrointestinal: Yes: Normal Bowel Sounds, Soft, Abdomen, Obese, Hernia. No: Distention, Tenderness, Vomiting Genitourinary: Yes: WNL Musculoskeletal: Yes: WNL Extremities: Yes: WNL Edema: No Neurological: Yes: WNL, Alert, Oriented Psychiatric: Yes: WNL, Alert, Oriented Labs: CBC, BMP 03/01/18 05:30 03/01/18 05:30 Assessment/Plan (1) SBO (small bowel obstruction) Assessment/Plan: resolved w/ conservative management clinimix, lipids for nutrition slightly dizzy and weak today, monitor until tomorrow tolerating clear liquids Strict I&O's Antiemetics/analgesics prn surgery cleared Code(s): K56.609 - UNSP INTESTNL OBST, UNSP TO PARTIAL VERSUS COMPLETE OBST (2) Fever Assessment/Plan: afebrile for 24 hours lactic acid wnl, wbc wnl suspect possible translocation UA/UC, blood cultures neg chest xray neg continue Zosyn, transition to augmentin 500mg bid x 2 days upon d/c ID following Code(s): R50.9 - FEVER, UNSPECIFIED Qualifiers: Encounter type: initial encounter (3) Nausea & vomiting Assessment/Plan: resolved Code(s): R11.2 - NAUSEA WITH VOMITING, UNSPECIFIED Qualifiers: Vomiting type: bilious vomiting Qualified Code(s): R11.14 - Bilious vomiting (4) Abdominal pain Assessment/Plan: resolved Code(s): R10.9 - UNSPECIFIED ABDOMINAL PAIN Qualifiers: Abdominal location: generalized Qualified Code(s): R10.84 - Generalized abdominal pain (5) CHERYL (acute kidney injury) resolved Code(s): N17.9 - ACUTE KIDNEY FAILURE, UNSPECIFIED (6) Leukocytosis Assessment/Plan: resolved Code(s): D72.829 - ELEVATED WHITE BLOOD CELL COUNT, UNSPECIFIED (7) S/P colostomy Assessment/Plan: transverse colostomy in place Code(s): Z93.3 - COLOSTOMY STATUS (8) HLD (hyperlipidemia) Assessment/Plan: stable statin Code(s): E78.5 - HYPERLIPIDEMIA, UNSPECIFIED Qualifiers: Hyperlipidemia type: pure hypercholesterolemia Qualified Code(s): E78.00 - Pure hypercholesterolemia, unspecified; E78.0 - Pure hypercholesterolemia (9) HTN (hypertension) Assessment/Plan: BP trend slightly elevated sbp 150s-160s increase losartan to 100mg and monitor Code(s): I10 - ESSENTIAL (PRIMARY) HYPERTENSION Qualifiers: Hypertension type: essential hypertension Qualified Code(s): I10 - Essential (primary) hypertension Dispo: home tomorrow if no acute changes.
[2018-03-01] MEDS: AMINO ACIDS 4.25%/D5W 1,000 ML IV SCH ×2 (10:08→12:43)
[2018-03-01] MEDS: MULTIVIT INJ. ADULT COMBO WITH VIT K 1 COMBO 10 ML VIAL IV SCH (12:43)
[2018-03-01] MEDS: AMOX TR/POT CLAV 500MG/125MG TABLETS (FP) PO SCH (17:16)
[2018-03-02] MEDS: AMOX TR/POT CLAV 500MG/125MG TABLETS (FP) PO SCH (08:26)
[2018-03-02 08:29] VITALS: BP 122/58; PULSE 86; TEMP 97.6
--- NOTE | 2018-03-02 08:35 | PN ---
Progress Note, Physician History of Present Illness: stable no complaints colostomy fning - Current Medication List Current Medications: Active Medications Acetaminophen (Ofirmev Injection -) 1,000 mg IVPB Q6H PRN PRN Reason: FEVER Last Admin: 02/27/18 16:44 Dose: 1,000 mg Amoxicillin/Clavulanate Potassium (Augmentin - 500mg Tablet) 1 tab PO BID@0800, 1730 [facility] Stop: 03/04/18 17:29 Last Admin: 03/02/18 08:26 Dose: 1 tab Losartan Potassium (Cozaar -) 100 mg PO DAILY [facility] Last Admin: 03/01/18 09:56 Dose: 100 mg Pantoprazole Sodium (Protonix -) 40 mg PO DAILY [facility] - Objective Vital Signs: Vital Signs Temperature 97.6 F 03/02/18 08:28 Pulse Rate 86 03/02/18 08:28 Respiratory Rate 20 03/02/18 08:28 Blood Pressure 122/58 L 03/02/18 08:28 O2 Sat by Pulse Oximetry (%) 98 03/01/18 09:00 Constitutional: Yes: No Distress, Calm Cardiovascular: Yes: Regular Rate and Rhythm Respiratory: Yes: Regular, CTA Bilaterally Gastrointestinal: Yes: Normal Bowel Sounds, Soft, Other (colostomy) Musculoskeletal: Yes: WNL Extremities: Yes: WNL Neurological: Yes: Alert, Oriented Psychiatric: Yes: Alert, Oriented Labs: CBC, BMP 03/01/18 05:30 03/01/18 05:30 Assessment/Plan Assessment/Plan (1) SBO (small bowel obstruction) Code(s): K56.609 - UNSP INTESTNL OBST, UNSP TO PARTIAL VERSUS COMPLETE OBST (2) Nausea & vomiting Assessment/Plan: as above Code(s): R11.2 - NAUSEA WITH VOMITING, UNSPECIFIED Qualifiers: Vomiting type: bilious vomiting Qualified Code(s): R11.14 - Bilious vomiting (3) Abdominal pain Code(s): R10.9 - UNSPECIFIED ABDOMINAL PAIN Qualifiers: Abdominal location: generalized Qualified Code(s): R10.84 - Generalized abdominal pain (4) CHERYL (acute kidney injury) Code(s): N17.9 - ACUTE KIDNEY FAILURE, UNSPECIFIED (5) Leukocytosis Code(s): D72.829 - ELEVATED WHITE BLOOD CELL COUNT, UNSPECIFIED (6) S/P colostomy Code(s): Z93.3 - COLOSTOMY STATUS (7) HLD (hyperlipidemia) Code(s): E78.5 - HYPERLIPIDEMIA, UNSPECIFIED Qualifiers: Hyperlipidemia type: pure hypercholesterolemia Qualified Code(s): E78.00 - Pure hypercholesterolemia, unspecified; E78.0 - Pure hypercholesterolemia (8) HTN (hypertension) Code(s): I10 - ESSENTIAL (PRIMARY) HYPERTENSION Qualifiers: Hypertension type: essential hypertension Qualified Code(s): I10 - Essential (primary) hypertension 9 fever plan augmentin for 2more days rest as per the team patients obstruction has resolved
[2018-03-02] MEDS: LOSARTAN POTASSIUM 50 MG TABLET (FP) PO SCH (09:04)
--- NOTE | 2018-03-02 09:20 | DS ---
Physical Examination Vital Signs: Vital Signs Temperature 97.6 F 03/02/18 08:28 Pulse Rate 86 03/02/18 08:28 Respiratory Rate 20 03/02/18 08:28 Blood Pressure 122/58 L 03/02/18 08:28 O2 Sat by Pulse Oximetry (%) 98 03/01/18 09:00 Constitutional: Yes: Well Nourished, No Distress, Calm Cardiovascular: Yes: WNL, Regular Rate and Rhythm Respiratory: Yes: WNL, Regular, CTA Bilaterally Gastrointestinal: Yes: Normal Bowel Sounds, Soft, Abdomen, Obese, Hernia. No: Distention, Tenderness, Vomiting Renal/: Yes: WNL Musculoskeletal: Yes: WNL Extremities: Yes: WNL Edema: No Neurological: Yes: WNL, Alert, Oriented Psychiatric: Yes: WNL, Alert, Oriented Labs: CBC, BMP 03/01/18 05:30 03/01/18 05:30 Discharge Summary Reason For Visit: SMALL BOWEL OBSTRUCTION Current Active Problems CHERYL (acute kidney injury) (Acute) Fever (Acute) Hyperkalemia (Acute) Hypokalemia (Acute) Leukocytosis (Acute) SBO (small bowel obstruction) (Acute) Hospital Course: 77 year old female with pmh significant for prior abdominal surgeries admitted with SBO. Surgery managed conservatively, s/p sesame oil trial. SBO resolved and pt started on clears. Ostomy functioning without difficulty. Pt to follow clear liquidsx1 week and then advance to low fiber diet as tolerated. During her stay, pt spiked fevers, suspect possible translocation, received 4 days of zosyn, transitioned to po augmentinx3 days. ID/GI/Surgery consult appreciated. Pt doing well today, tolerating clears, vitals stable, labs unremarkable. Losartan was initially increased to 100mg however BP trending low after initiation, to prevent hypotension at home, will continue home dose of losartan 50mg and have pt follow up outpt to manage further. Otherwise, pt is medically stable for discharge home. follow as directed. 35 minutes spent in discharge planning Condition: Good - Instructions Diet, Activity, Other Instructions: no particle clear liquid diet x 1 week (ice cream, milk) then advance to full liquids and eventually low fiber diet follow up as directed Referrals: Tommie Richards MD [Staff Physician] - Larry Hernandez MD [Primary Care Provider] - 1 Week Disposition: VNS/HOME HEALTH CARE - Home Medications Comprehensive Discharge Medication List: Ambulatory Orders Pantoprazole Sodium [Protonix] 40 mg PO DAILY 10/09/14 Simvastatin [Zocor -] 20 mg PO HS 10/09/14 Losartan Potassium 50 mg PO DAILY 02/14/18 Multivitamin/Iron/Folic Acid [Centrum Adults Tablet] 1 each PO DAILY 02/14/18 Amox-Tr/K Cl [Augmentin 500-125mg Tablet -] 1 tab PO BID@0800,1730 1 Days #3 tablet 03/02/18
[2018-03-02] MEDS ORDERED: PANTOPRAZOLE 40 MG TABLET (FP) PO SCH (10:00)
== END 2018-03-02 10:42 | disposition home health service (06) | DRG 389 ==
LOC: JER 09:28 → JERBED 13:34 → J8W 20:33
PROVIDERS: ADMIT Internal Medicine; ATTEND Internal Medicine
DX: K56.50 Intestinal adhesions [bands], unspecified as to partial versus complete obstruction (principal); N17.9 Acute kidney failure, unspecified; N82.3 Fistula of vagina to large intestine; R11.2 Nausea with vomiting, unspecified; E87.5 Hyperkalemia; D72.829 Elevated white blood cell count, unspecified; Z93.3 Colostomy status; R10.9 Unspecified abdominal pain; R50.9 Fever, unspecified; E87.6 Hypokalemia; E78.5 Hyperlipidemia, unspecified; I10 Essential (primary) hypertension
CPT/HCPCS: 36415; 71045-TC-FY; 74018-TC-FY; 74177-TC; 80048; 80053; 81003; 81015; 82150; 82272; 83605; 83690; 83735; 84100; 85025; 85027; 86140; 87040; 87086; 93005; 93010; 99283-25; J0131; J1644; J7030

== ENCOUNTER 2018-06-09 09:03 | Day surgery (SDC) | payer OTHER, MEDICARE ==
[2018-06-08 15:11] VITALS: BMI 31.6
[2018-06-09] MEDS ORDERED: LIDOCAINE HCL/PF 2% SDV 5ML VIAL ONE (09:48)
[2018-06-09 11:07] VITALS: TEMP 97.8
[2018-06-09 12:52] VITALS: BP 104/63; PULSE 70
--- NOTE | 2018-06-12 17:00 | PATH ---
Surgical Pathology Report Patient Name: JOANA ECHEVARRIA [facility]. Rec. #: [id number] /Age/Gender: 1940 (Age: 77) / F Account: [id number] Location: U-ENDOSCOPY Taken: 06/09/2018 Received: 06/09/2018 Reported: 06/12/2018 Physicians: Tommie Richards M.D. Specimen(s) Received A: BX DUODENUM B: BX ANTRUM C: BX GASTRIC FUNDUS POLYP D: BX POLYP ASCENDING COLON E: BX LIPOMA ASCENDING COLON Clinical History Dyspepsia, rule out ulcer, history of colon cancer Final Diagnosis A. DUODENUM AND BULB, BIOPSY: DUODENAL MUCOSA WITHOUT SIGNIFICANT PATHOLOGIC FINDINGS. B. STOMACH, ANTRUM, BIOPSY: GASTRIC ANTRAL MUCOSA WITH MILD CHRONIC GASTRITIS. IMMUNOHISTOCHEMICAL STAIN FOR H. PYLORI IS NEGATIVE. C. GASTRIC FUNDUS, POLYP, BODY, BIOPSY: FUNDIC GLAND POLYP. IMMUNOHISTOCHEMICAL STAIN FOR H. PYLORI IS NEGATIVE. D. ASCENDING COLON, POLYP, BIOPSY: POLYPOID COLONIC MUCOSA WITH FOCAL MILD SUPERFICIAL HYPERPLASTIC FEATURES. E. ASCENDING COLON, LIPOMA, BIOPSY: POLYPOID COLONIC MUCOSA WITH FOCAL MILD SUPERFICIAL HYPERPLASTIC FEATURES. Electronically Signed Sommer Caicedo M.D. Gross Description A. Received in formalin, labeled "second portion of duodenum and bulb" are 3 gilman, irregular portions of soft tissue ranging from 0.4-0.5 cm. in greatest dimension. The specimens are submitted in toto in one cassette. B. Received in formalin, labeled "antrum" is a gilman, irregular portion of soft tissue measuring 0.5 cm. in greatest dimension. The specimen is submitted in toto in one cassette. C. Received in formalin, labeled "gastric fundus polyp in body" are 4 gilman, irregular portions of soft tissue ranging from 0.2-0.4 cm. in greatest dimension. The specimens are submitted in toto in one cassette. D. Received in formalin, labeled "polyp ascending colon" are 4 gilman, irregular portions of soft tissue ranging from 0.1-0.4 cm. in greatest dimension. The specimens are submitted in toto in one cassette. E. Received in formalin, labeled "ascending colon biopsy lipoma" are 2 gilman, irregular portions of soft tissue measuring 0.2 and 0.3 cm. in greatest dimension. The specimens are submitted in toto in one cassette. 06/09/2018 saudi06/09/2018
== END 2018-06-09 12:52 | disposition home or self-care (01) ==
LOC: JASU-ENDO 09:03
PROVIDERS: ATTEND Internal Medicine Gastroenterology
PROC: 0DB68ZX Excision of Stomach, Via Natural or Artificial Opening Endoscopic, Diagnostic (ICD-10-PCS; 2018-06-09)
PROC: 0DBK8ZX Excision of Ascending Colon, Via Natural or Artificial Opening Endoscopic, Diagnostic (ICD-10-PCS; principal; 2018-06-09 10:00)
DX: Z12.11 Encounter for screening for malignant neoplasm of colon (principal); D12.2 Benign neoplasm of ascending colon; K57.30 Diverticulosis of large intestine without perforation or abscess without bleeding; K64.8 Other hemorrhoids; K31.7 Polyp of stomach and duodenum; K44.9 Diaphragmatic hernia without obstruction or gangrene
CPT/HCPCS: 88305-TC; 88342-TC

== ENCOUNTER 2023-08-24 04:24 | Day surgery (SDC) | payer OTHER, MEDICARE ==
[2023-08-17 14:23] VITALS: BMI 33.8
[2023-08-24 11:01] VITALS: TEMP 97.5
[2023-08-24 11:31] VITALS: RESP 22
[2023-08-24 12:52] VITALS: BP 154/66; PULSE 63
== END 2023-08-24 12:28 | disposition home or self-care (01) ==
LOC: JASU-ENDO 04:24
PROVIDERS: ATTEND Internal Medicine Gastroenterology
PROC: 0DBL8ZX Excision of Transverse Colon, Via Natural or Artificial Opening Endoscopic, Diagnostic (ICD-10-PCS; 2023-08-24)
PROC: 0DB98ZX Excision of Duodenum, Via Natural or Artificial Opening Endoscopic, Diagnostic (ICD-10-PCS; 2023-08-24)
PROC: 0DB78ZX Excision of Stomach, Pylorus, Via Natural or Artificial Opening Endoscopic, Diagnostic (ICD-10-PCS; 2023-08-24)
PROC: 0DB68ZX Excision of Stomach, Via Natural or Artificial Opening Endoscopic, Diagnostic (ICD-10-PCS; 2023-08-24)
PROC: 0DBK8ZX Excision of Ascending Colon, Via Natural or Artificial Opening Endoscopic, Diagnostic (ICD-10-PCS; principal; 2023-08-24 10:00)
DX: Z12.11 Encounter for screening for malignant neoplasm of colon (principal); D12.3 Benign neoplasm of transverse colon; D17.5 Benign lipomatous neoplasm of intra-abdominal organs; K57.30 Diverticulosis of large intestine without perforation or abscess without bleeding; K29.50 Unspecified chronic gastritis without bleeding; K21.00 Gastro-esophageal reflux disease with esophagitis, without bleeding; Z86.010 Personal history of colon polyps; Z90.49 Acquired absence of other specified parts of digestive tract; Z93.3 Colostomy status; I10 Essential (primary) hypertension
CPT/HCPCS: 88305-TC; 88342-TC